=== PATIENT | female | born 1985 | race Two or more races ===

== ENCOUNTER 2024-09-07 09:52 | Inpatient (IN) | payer MEDICAID, OTHER ==
[~2024-09-07] VITALS: Ht 162.6 cm; Wt 91.0 kg
--- NOTE | 2024-09-07 11:06 | ED.PDOC ---
History of Present Illness HPI Comments HPI: Poor historian 38-year-old female presents with a chief complaint of generalized weakness, SOB, and back pain x onset this morning. Patient mentions that this morning she woke up and her body feels "sore all over" and feels generally weak. Patient mentions that she has a history of blood transfusions in the past due to anemia, last one being x 6 months ago. Patient reports that she bleeds due to uterine fibroids. She denies any active vaginal bleeding at this time. However when she believes she has heavy menstrual cycles. Patient endorses taking Iron supplements, but states that she is not consistent with them. Patient feels that she might be anemic and she might need blood transfusion given the way she feels. PMHx: Uterine Fibroids, Heavy Menstrual Bleeding PSHx: Allergies: No Known Allergies Initial Vital Signs: BP: 135/71 HR: 119 Temp: 97.5F SpO2: 100% RR: 24 HP REVIEW OF SYSTEMS: CONSTITUTIONAL: Denies acute: fever, diaphoresis, chills, HEAD: Denies acute: headache, photophobia Eyes: Denies acute: Double vision, vision loss, eye pain, eye discharge. EARS: Denies acute: tinnitus, hearing loss, ear discharge, ear pain, THROAT: Denies acute: sore throat, swelling, difficulty swallowing , pain with swallowing, change in voice. NECK: Denies acute: neck pain, neck swelling, stiff neck. HEART: Denies acute : chest pain, palpitations, LUNGS: Denies acute: wheezing, cough, hemoptysis ABDOMEN: Denies acute: abdominal pain, Nausea, Vomiting, diarrhea, melena , hematemesis, hematochezia SKIN: Denies acute: rash, redness, lesions, itchiness. EXTREMITIES: Denies acute: calf pain, numbness, tingling, weakness, denies pain in extremity. Neuro: Denies acute: focal neurological deficit, motor or sensory focal neurological deficit, tremors, seizure like activity, confusion, dizziness, change in mental status, loss of bowel or bladder function, cauda equina like symptoms. : Denies acute: dysuria, hematuria, flank pain, increase in urinary frequency. PSYCH: Denies acute: hallucination, suicidal ideation, homicidal ideation. FEMALE: Denies acute: abnormal vaginal bleeding, foul odor, unusual discharge. PHYSICAL EXAM: General: no acute distress, awake and alert. Head: normocephalic, atraumatic. Neck: supple, trachea is midline, no swelling. Throat: Normal phonation. Eyes:, no erythema, no purulent discharge, no proptosis, no icterus. Heart: regular tachycardic, no significant murmur appreciated. Lungs: no apparent respiratory distress, Able to speak in full sentences. No wheezing, no rhonchi, no crackles. No stridors Clear to auscultation bilaterally. Abdomen: non tender to palpation, non distended, soft, no guarding, no rebound, + bowel sounds. Neuro: Awake, Alert, oriented to name, self, situation, follows commands GCS=15. Speech is normal. Skin: no petechia, no purpura, no cyanosis, non-pale, not jaundice. Lower extremities: --no - Pitting edema no deformity, no focal swelling, no calf TTP. Makes eye contact. moves all four extremities. Face: no apparent facial droop. 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 Was a procedure done?: No Differential Dx Considerations may include: As far as weakness, Includes but not limited to thyroid disease, encephalopathy, electrolyte abnormality, sepsis, infection, intracranial pathology, drug adverse effects, arrhythmia, kidney insufficiency, ACS, CVA, malignancy, anemia X-Ray, Labs, Meds, VS Vital Signs Date Time Temp Pulse Resp B/P (MAP) Pulse Ox O2 Delivery O2 Flow Rate FiO2 09/07/24 18:33 114 18 128/67 (87) 95 09/07/24 17:20 122 09/07/24 12:12 110 20 130/74 (92) 100 09/07/24 12:00 108 09/07/24 11:22 99 17 100 Room Air* 0 21 09/07/24 10:10 104 09/07/24 10:00 97.5 119 24 135/71 (92) 100 Lab Test 09/07/24 17:31 09/07/24 12:58 09/07/24 11:16 09/07/24 10:05 Range/Units Urine Color Light-yellow Yellow Urine Clarity Clear Clear Urine pH 8.0 5.0-9.0 Urine Specific Reading 1.013 1.001-1.035 Urine Protein Trace H Negative Urine Ketones Negative Negative Urine Blood Negative Negative /uL Urine Nitrite Negative Negative Urine Bilirubin Negative Negative Urine Urobilinogen Normal Negative mg/dL Urine Leukocyte Esterase 1+ Negative /uL Urine RBC 1 0 - 4 /hpf Urine WBC 35 0 - 5 /hpf Urine Squamous Epithelial Cells Few <5 /hpf Urine Bacteria Few H None Seen /hpf Urine Glucose Normal Normal mg/dL Urine Test Negative Negative Hemoglobin 6.6 *L 7.1 L 12.2-16.2 g/dL Hematocrit 23.9 L 25.5 L 36.0-46.0 % White Blood Count 10.9 H 4.4-10.8 10^3/uL Red Blood Count 4.95 4.0-5.20 10^6/uL Mean Corpuscular Volume 51.4 L 80.0-100.0 fL Mean Corpuscular Hemoglobin 14.3 L 28.0-32.0 pg Mean Corpuscular Hemoglobin Concent 27.9 L 32.0-36.0 g/dL Red Cell Distribution Width 21.9 H 11.8-14.3 % Platelet Count 369 140-450 10^3/uL Mean Platelet Volume 8.2 6.9-10.8 fL Neutrophils (%) (Auto) 80.8 H 37.0-80.0 % Lymphocytes (%) (Auto) 8.3 L 10.0-50.0 % Monocytes (%) (Auto) 10.3 0.0-12.0 % Eosinophils (%) (Auto) 0.2 0.0-7.0 % Basophils (%) (Auto) 0.4 0.0-2.0 % Neutrophils # (Auto) 8.8 H 1.6-8.6 10 ^3/uL Lymphocytes # (Auto) 0.9 0.4-5.4 10 ^3/uL Monocytes # (Auto) 1.1 0-1.3 10 ^3/uL Eosinophils # (Auto) 0 0-0.8 10 ^3/uL Basophils # (Auto) 0 0-0.2 10 ^3/uL Nucleated Red Blood Cells 0.1 % Platelet Estimate Adequate Hypochromasia (manual) Marked Microcytosis Marked Stomatocytes Few Sodium Level 133 L 136-145 mmol/L Potassium Level 3.8 3.5-5.1 mmol/L Chloride Level 101 98-107 mmol/L Carbon Dioxide Level 26 20-31 mmol/L Anion Gap 6 5-15 Blood Urea Nitrogen 9 9-23 mg/dL Creatinine 0.82 0.550-1.02 mg/dL Glomerular Filtration Rate Calc 93 >90 mL/min BUN/Creatinine Ratio 11.0 10.0-20.0 Serum Glucose 100 74-106 mg/dL Lactic Acid Level 1.1 0.4-2.0 mmol/L Calcium Level 9.5 8.7-10.4 mg/dL Magnesium Level 1.7 1.6-2.6 mg/dL Troponin I High Sensitivity < 3 L </=34 ng/L B-Type Natriuretic Peptide 62.82 0-100 pg/mL POC Glucose 90 70-106 mg/dl Current Medications Medications (Trade) Dose Ordered Sig/Dandre Route Start Time Stop Time Status Last Admin Sodium Chloride 1,000 ml @ 1,000 mls/hr Q1H ONCE IV 09/07/24 12:15 09/07/24 13:14 DC 09/07/24 12:31 Acetaminophen/ Hydrocodone Bitart ([place] 5/325MG Tab) 1 tab ONCE ONCE PO 09/07/24 17:45 09/07/24 17:46 DC 09/07/24 18:02 Time of 1ST Reevaluation: 11:27 Reevaluation 1ST: Unchanged Time of 2ND Reevaluation: 20:00 Reevaluation 2ND: Improved Patient Education/Counseling: Diagnosis, Treatment Family Education/Counseling: No Family Present Comments Patient presented with the above HPI.---weakness/dyspnea---workup was initiated. patient was found with the above mentioned diagnosis. Patient was given: Patient was found with a symptomatic anemia, patient was consented for blood transfusion. An order of 2 units of packed red blood cells was ordered. She is not actively bleeding right now tall Patient ED course and VS have been stabilized. Patient has been reassessed in the ED and remained in a stable condition. Pertinent incidental findings were discussed with the patient and/or family. Patient/family voices understanding and is agreeable with plan. Patient has been observed in the ED adequate length of time to insure improvement/stability. Patient denies bleeding from anywhere. patient was admitted to the medicine team for further evaluation and treatment of their presentation. All the reports of any imaging studies that were ordered by myself were reviewed by myself. Departure 1 Departure Time of Disposition: 13:19 Impression: Primary Impression: Symptomatic anemia Additional Impression: Back pain Disposition: ADMITTED INPATIENT Admit to: Tele Condition: Guarded Discharged With: Self Critical Care Note Critical Care Time?: Yes (45 min-critical care time only) I personally scribed for GREG CORDON DO ([email or web address]) on 09/07/24 at 11:06. Electronically submitted by Maninder Felder ([email or web address]). I personally scribed for GREG CORDON DO ([email or web address]) on 09/07/24 at 12:10. Electronically submitted by Maninder Felder ([email or web address]). GREG CORDON DO Sep 07, 2024 11:06
[2024-09-07 11:22] VITALS: PULSE 99; RESP 17; O2SAT 100
[2024-09-07 11:50] LABS: Basophils # (auto) 0 10 ^3/uL (0-0.2); Eosinophils # (auto) 0 10 ^3/uL (0-0.8); Lymphocytes # (auto) 0.9 10 ^3/uL (0.4-5.4); Lymphocytes % (auto) 8.3 % (10.0-50.0); Monocytes # (auto) 1.1 10 ^3/uL (0-1.3)
[2024-09-07 11:57] LABS: Basophils % (auto) 0.4 % (0.0-2.0); Eosinophils % (auto) 0.2 % (0.0-7.0); Hematocrit 25.5 % (36.0-46.0); Hemoglobin 7.1 g/dL (12.2-16.2); Mean Corpuscular Hemoglobin 14.3 pg (28.0-32.0); Mean Corpuscular Hgb Conc. 27.9 g/dL (32.0-36.0); Mean Corpuscular Volume 51.4 fL (80.0-100.0); Monocytes % (auto) 10.3 % (0.0-12.0); Neutrophils # (auto) 8.8 10 ^3/uL (1.6-8.6); Neutrophils % (auto) 80.8 % (37.0-80.0); Nucleated Red Blood Cells % 0.1 %; Platelet Count (auto) 369 10^3/uL (140-450); Red Blood Cells 4.95 10^6/uL (4.0-5.20); Red Cell Distribution Width 21.9 % (11.8-14.3); White Blood Cell 10.9 10^3/uL (4.4-10.8)
[2024-09-07 12:00] LABS: Chloride 101 mmol/L (98-107); Potassium 3.8 mmol/L (3.5-5.1); Sodium 133 mmol/L (136-145)
[2024-09-07 12:01] LABS: Anion Gap 6 (5-15); Calcium 9.5 mg/dL (8.7-10.4); Carbon Dioxide 26 mmol/L (20-31)
[2024-09-07 12:06] LABS: Blood Urea Nitrogen 9 mg/dL (9-23); Glucose 100 mg/dL (74-106); Magnesium 1.7 mg/dL (1.6-2.6)
[2024-09-07] MEDS: SODIUM CHLORIDE 0.9% 1,000 ML IV ONE (12:31)
[2024-09-07 13:14] LABS: Hematocrit 23.9 % (36.0-46.0)
[2024-09-07 13:19] LABS: Hemoglobin 6.6 g/dL (12.2-16.2)
[2024-09-07 14:02] LABS: Platelet Estimate Adequate
[2024-09-07 14:03] LABS: Hypochromia Marked; Stomatocytes Few
--- NOTE | 2024-09-07 16:53 | DVH ---
Procedure: XY CHEST PORTABLE 09/07/2024 04:26 PM Indication: sob/weak. Comparison: None TECHNIQUE: XY CHEST PORTABLE FINDINGS: Medical devices: None. Cardiomediastinal: The heart is normal in size. Pulmonary vasculature is within normal limits. Lungs: No focal pulmonary opacity is seen. The costophrenic angles are clear. No pneumothorax. Bones/soft tissues: No acute abnormality is noted. IMPRESSION: 1. No acute cardiopulmonary disease.
[2024-09-07] MEDS: HYDROcodone-ACET 5/325MG TAB PO ONE (18:02)
[2024-09-07 18:23] LABS: Urine Bacteria FEW /hpf (None Seen); Urine Blood Negative /uL (Negative); Urine Clarity Clear (Clear); Urine Color Light-Yellow (Yellow); Urine Protein, UAD TRACE (Negative); Urine Specific Gravity 1.013 (1.001-1.035); Urine Urobilinogen Normal (Negative); Urine WBC 35 /hpf (0 - 5)
[2024-09-07 21:39] VITALS: RESP 21; O2SAT 97
[2024-09-07] MEDS ORDERED: ONDANSETRON HCL 4 MG/2 ML VIAL IV PRN (21:45)
[2024-09-07] MEDS ORDERED: ACETAMINOPHEN 325 MG TAB PO PRN (21:45)
[2024-09-07] MEDS ORDERED: NITROGLYCERIN 0.4 MG SL TAB SL PRN (21:45)
[2024-09-07] MEDS ORDERED: MORPHINE SULFATE INJ 2 MG/ml SYRG IV PRN (21:45)
[2024-09-07] MEDS: SODIUM CHLOR 0.9% PF (SALINE LOCK) 10ML VIAL/SYR IV SCH (22:00)
[2024-09-07] MEDS: SODIUM CHLORIDE 0.9% 1,000 ML IV SCH (22:12)
[2024-09-07] MEDS: cefTRIAXone 1GM/50ML D5W 50 ML IV ONE (22:27)
--- NOTE | 2024-09-07 22:31 | DVHHPRES ---
History of Present Illness Resident Creating Document: NENA BOND RESIDENT History of Present Illness This is a 38-year-old female medical history of uterine fibroid presented to the ED with a chief complaint of dizziness, palpitation, generalized weakness and pain from neck to the lower back since morning prior to this admission. According to the patient she has a history of fibroid and menorrhagia for last 3 years. Recently she started having frequent heavy menstrual bleeding twice in a month and stayed more than 5 days. She was prescribed before iron supplementation for chronic anemia but she was not compliant with this. She also mentioned she had frequent history of blood transfusion for menorrhagia and last transfusion was six-month ago. Past Medical History Fibroid uterus Past Surgical History , tubal ligation Smoke: No ALCOHOL: none Drugs: None Lives: with Family Review of Systems Constitutional: No: Fever, Chills, Sweats, Weakness, Malaise, Other Eyes: No: Pain, Vision change, Conjunctivae inflammation, Eyelid inflammation, Other, Redness ENT: No: Ear pain, Ear discharge, Nose pain, Nose discharge, Nose congestion, Mouth pain, Mouth swelling, Throat pain, Throat swelling, Other Cardiovascular: Palpitations, Lt Headedness; No: Chest Pain, Orthopnea, Paroxysmal Noc. Dyspnea, Edema, Other Gastrointestinal: No: Nausea, Vomiting, Abdominal Pain, Diarrhea, Constipation, Melena, Hematochezia, Other Genitourinary: No Dysuria, No Frequency, No Incontinence, No Hematuria, No Retention, No Other Musculoskeletal: neck pain, shoulder pain, back pain; No: other, arm pain, hand pain, leg pain, foot pain Skin: No: Rash, Lesions, Jaundice, Bruising, Other Neurological: No: Weakness, Numbness, Incoordination, Change in speech, Confusion, Seizures, Other Allergies: Coded Allergies: NO KNOWN ALLERGIES (Unverified , 09/07/24) Medications Current Medications Medications Dose Ordered Sig/Dandre Route Start Time Stop Time Status Last Admin Dose Admin Sodium Chloride 10 ml Q8HR IV 09/07/24 22:00 Sodium Chloride 1,000 ml @ 75 mls/hr [id number] IV 09/07/24 21:45 09/07/24 22:12 75 MLS/HR Acetaminophen 325 mg Q4HP PRN PO 09/07/24 21:45 Acetaminophen/ Hydrocodone Bitart 1 tab Q4HP PRN PO 09/07/24 21:45 Ondansetron HCl 4 mg Q4HP PRN IV 09/07/24 21:45 Nitroglycerin 0.4 mg Q5MINP PRN SL 09/07/24 21:45 Morphine Sulfate 2 mg Q30M PRN IV 09/07/24 21:45 Ceftriaxone Sodium 50 ml @ 100 mls/hr DAILY@09 IV 09/08/24 09:00 Exam Vital Signs Vital Signs Date Time Temp Pulse Resp B/P (MAP) Pulse Ox O2 Delivery O2 Flow Rate FiO2 09/07/24 21:39 99.0 110 21 113/67 (82) 97 99.0 09/07/24 21:39 Room Air* 0 21 Exam Physical examination: General Appearance: Alert, Oriented X3, Cooperative, No acute distress HEENT: Atraumatic, PERRLA, EOMI, Mucous membrane moist/pink Respiratory: Clear to auscultation, Normal air movement Cardiovascular: Regular rate, Normal S1, Normal S2, No murmurs, no chest wall tenderness Abdominal: Normal bowel sounds, Soft, No tenderness, No hepatospenomegaly, No masses Extremities: No clubbing, No cyanosis, No edema, Normal pulses, No tenderness/swelling Skin: No rashes, No breakdown, No significant lesion Neuro: Normal gait, Normal speech, Strength at 5/5 X4 ext, Normal tone, Sensation intact, grossly intact cranial nerves Psych/Mental Status: Mental status NL, Mood NL Labs/Xrays Labs Test 09/07/24 17:31 09/07/24 12:58 09/07/24 11:16 09/07/24 10:05 Range/Units Urine Color Light-yellow Yellow Urine Clarity Clear Clear Urine pH 8.0 5.0-9.0 Urine Specific [place] 1.013 1.001-1.035 Urine Protein Trace H Negative Urine Ketones Negative Negative Urine Blood Negative Negative /uL Urine Nitrite Negative Negative Urine Bilirubin Negative Negative Urine Urobilinogen Normal Negative mg/dL Urine Leukocyte Esterase 1+ Negative /uL Urine RBC 1 0 - 4 /hpf Urine WBC 35 0 - 5 /hpf Urine Squamous Epithelial Cells Few <5 /hpf Urine Bacteria Few H None Seen /hpf Urine Glucose Normal Normal mg/dL Urine Test Negative Negative Hemoglobin 6.6 *L 12.2-16.2 g/dL Hematocrit 23.9 L 36.0-46.0 % White Blood Count 10.9 H 4.4-10.8 10^3/uL Red Blood Count 4.95 4.0-5.20 10^6/uL Mean Corpuscular Volume 51.4 L 80.0-100.0 fL Mean Corpuscular Hemoglobin 14.3 L 28.0-32.0 pg Mean Corpuscular Hemoglobin Concent 27.9 L 32.0-36.0 g/dL Red Cell Distribution Width 21.9 H 11.8-14.3 % Platelet Count 369 140-450 10^3/uL Mean Platelet Volume 8.2 6.9-10.8 fL Neutrophils (%) (Auto) 80.8 H 37.0-80.0 % Lymphocytes (%) (Auto) 8.3 L 10.0-50.0 % Monocytes (%) (Auto) 10.3 0.0-12.0 % Eosinophils (%) (Auto) 0.2 0.0-7.0 % Basophils (%) (Auto) 0.4 0.0-2.0 % Neutrophils # (Auto) 8.8 H 1.6-8.6 10 ^3/uL Lymphocytes # (Auto) 0.9 0.4-5.4 10 ^3/uL Monocytes # (Auto) 1.1 0-1.3 10 ^3/uL Eosinophils # (Auto) 0 0-0.8 10 ^3/uL Basophils # (Auto) 0 0-0.2 10 ^3/uL Nucleated Red Blood Cells 0.1 % Platelet Estimate Adequate Hypochromasia (manual) Marked Microcytosis Marked Stomatocytes Few Sodium Level 133 L 136-145 mmol/L Potassium Level 3.8 3.5-5.1 mmol/L Chloride Level 101 98-107 mmol/L Carbon Dioxide Level 26 20-31 mmol/L Anion Gap 6 5-15 Blood Urea Nitrogen 9 9-23 mg/dL Creatinine 0.82 0.550-1.02 mg/dL Glomerular Filtration Rate Calc 93 >90 mL/min BUN/Creatinine Ratio 11.0 10.0-20.0 Serum Glucose 100 74-106 mg/dL Lactic Acid Level 1.1 0.4-2.0 mmol/L Calcium Level 9.5 8.7-10.4 mg/dL Magnesium Level 1.7 1.6-2.6 mg/dL Troponin I High Sensitivity < 3 L </=34 ng/L B-Type Natriuretic Peptide 62.82 0-100 pg/mL POC Glucose 90 70-106 mg/dl Assessment/Plan Assessment/Plan Assessment and plan: # Acute on chronic symptomatic severe iron deficiency anemia due to menorrhagia - On admission hemoglobin was 7.1- 6.6 - 2 unit PRBC was ordered - Monitor H&H # Menorrhagia due to uterine fibroid - Pelvic ultrasound revealed large uterine fibroid 17.3 x 10.6 x 16.5 cm - Consulted OBGYN # Acute cystitis - U/A is consistent with UTI - Ordered urine bacterial culture - IV ceftriaxone 1 g daily. Goal of care discussed with the patient for more than 17 minutes full code Plan of treatment discussed with Dr. Renee Plan discussed with: Patient, Other My Orders Orders - NENA BOND RESIDENT Procedure Category Date Status Time Admit ADMIT 09/07/24 Transmitted 21:37 Code Status CODE 09/07/24 Transmitted 21:37 Sodium Chloride Lock PHA 09/07/24 In Process (Saline Lock Ns) 22:00 Sodium Chloride 0.9% PHA 09/07/24 In Process 21:45 Acetaminophen Tablet PHA 09/07/24 In Process (Tylenol Tablet) 21:45 Hydrocodone-Acet PHA 09/07/24 In Process 5/325mg Tab ([place] 21:45 Ondansetron Hcl PHA 09/07/24 In Process (Zofran) 21:45 Complete Blood Count LAB 09/08/24 Verified 04:00 Comprehensive LAB 09/08/24 Verified Metabolic Panel 04:00 Nitroglycerin PHA 09/07/24 In Process Sublingual (Ntrostat 21:45 Morphine Sulfate PHA 09/07/24 In Process Injection 21:45 Oxygen By Nasal RT 09/07/24 Transmitted Cannula 21:37 Stat Ekg For Chest ANNA 09/07/24 In Process Pain 21:37 Notify Of Changes ANNA 09/07/24 In Process From Base 21:37 Electric Motor Repairer For ANNA 09/07/24 In Process 24 Hours 21:37 Emergency Dysrhythmia ANNA 09/07/24 In Process Protocol 21:37 Rhythm Strips Once ANNA 09/07/24 In Process Every Shift 21:37 Ceftriaxone 1gm/50ml PHA 09/08/24 In Process D5w (Rocephin) 09:00 Ceftriaxone 1gm/50ml PHA 09/07/24 In Process D5w (Rocephin) 22:15 Urine Bacterial GREGORY 09/07/24 Uncollected Culture 22:09 Hemoglobin A1c LAB 09/07/24 Logged 22:09 Thyroid Stimulating LAB 09/07/24 Logged Hormone 22:09 Vitamin B12 LAB 09/07/24 Logged 22:09 Vitamin D, 25-Hydroxy LAB 09/07/24 Logged 22:09 Pelvic US 09/07/24 Logged 22:09 Regular Diet DIET 09/08/24 Transmitted Breakfast NENA BOND RESIDENT Sep 07, 2024 22:31
[2024-09-07 23:45] VITALS: BP 120/72; PULSE 104; RESP 20; TEMP 97.8; O2SAT 96
[2024-09-08] VITALS (14 sets, daily range): BP systolic 109–145; BP diastolic 60–85; PULSE 95–108; RESP 18–20; TEMP 97.5–99.6; O2SAT 93–100
--- NOTE | 2024-09-08 00:55 | DVH ---
PELVIC ULTRASOUND WITH TRANSABDOMINAL AND TRANSVAGINAL IMAGING CLINICAL HISTORY: Possible fibroid uterus. COMPARISON: No prior studies available for comparison. TECHNIQUE: Transabdominal grayscale, color-flow Doppler, and duplex Doppler was performed. FINDINGS: Uterus: Measures 17.3 x 10.6 x 16.5 cm. This includes a large, heterogeneous and vascular lesion whic h measures at least 12 x 9 x 11 cm in the field of view. Neither ovary is clearly visualized. No appreciable free fluid in the cul-de-sac. IMPRESSION: Large uterine lesion most likely representing a fibroid. Limited [id number] limits further delinea tion. MRI may be obtained to further characterize. Ovaries are not clearly visualized. HS:Y
[2024-09-08 07:01] LABS: Eosinophils # (auto) 0 10 ^3/uL (0-0.8); Lymphocytes # (auto) 1.3 10 ^3/uL (0.4-5.4); Mean Corpuscular Hemoglobin 13.7 pg (28.0-32.0); Neutrophils # (auto) 5.9 10 ^3/uL (1.6-8.6)
[2024-09-08 07:04] LABS: Basophils # (auto) 0.1 10 ^3/uL (0-0.2); Basophils % (auto) 0.7 % (0.0-2.0); Eosinophils % (auto) 0.5 % (0.0-7.0); Hematocrit 25.5 % (36.0-46.0); Lymphocytes % (auto) 15.4 % (10.0-50.0); Mean Corpuscular Hgb Conc. 26.5 g/dL (32.0-36.0); Mean Corpuscular Volume 51.8 fL (80.0-100.0); Monocytes % (auto) 11.5 % (0.0-12.0); Neutrophils % (auto) 71.9 % (37.0-80.0); Nucleated Red Blood Cells % 0.1 %; Platelet Count (auto) 358 10^3/uL (140-450); Red Blood Cells 4.92 10^6/uL (4.0-5.20); White Blood Cell 8.3 10^3/uL (4.4-10.8)
[2024-09-08 07:12] LABS: Red Cell Distribution Width 22.1 % (11.8-14.3)
[2024-09-08 07:14] LABS: Hemoglobin 6.8 g/dL (12.2-16.2)
[2024-09-08 07:24] LABS: Alanine Aminotransferase 10 U/L (7-40); Albumin 4.1 g/dL (3.2-4.8); Alkaline Phosphatase 88 U/L (46-116); Anion Gap 9 (5-15); Aspartate Aminotransferase 13 U/L (13-40); BUN/Creatinine Ratio 9.2 (10.0-20.0); Bilirubin, Total 0.7 mg/dL (0.2-1.0); Blood Urea Nitrogen 7 mg/dL (9-23); Calcium 9.5 mg/dL (8.7-10.4); Carbon Dioxide 24 mmol/L (20-31); Chloride 103 mmol/L (98-107); Glucose 91 mg/dL (74-106); Potassium 3.8 mmol/L (3.5-5.1); Sodium 136 mmol/L (136-145); Total Protein 7.4 g/dL (5.7-8.2)
[2024-09-08 07:49] LABS: % Iron Saturation 5.6 % (15-50)
[2024-09-08 08:06] LABS: Platelet Estimate Adequate
[2024-09-08 08:07] LABS: Anisocytosis Slight; Hypochromia Marked
[2024-09-08 08:19] LABS: Ovalocytes FEW; Stomatocytes Few
[2024-09-08] MEDS: cefTRIAXone 1GM/50ML D5W 50 ML IV SCH (08:26)
[2024-09-08 08:31] LABS: Wright Stain Ready for Review
[2024-09-08] MEDS: HYDROcodone-ACET 5/325MG TAB PO PRN (08:36)
[2024-09-08 08:42] LABS: INR 0.97 (0.9-1.15); Partial Thromboplastin Time 23.9 SEC (24.5-34.5); Prothrombin Time 10.3 sec (9.3-11.8)
--- NOTE | 2024-09-08 08:44 | DVHPNRES ---
Progress Note Date Seen: Sep 08, 2024 Resident Creating Document: NESSA FORD RESIDENT Medical Necessity Reason Pt with a Central, PICC or Fol: No Subjective Review of Systems Patient is a 38-year-old female with past medical history of uterine fibroids who came in due to asymptomatic anemia. According to the patient, on 09/07/2024 she started experiencing a back ache radiating from her neck to her sacrum along with a fever whereby she knew she likely will need a blood transfusion which is what prompted this visit to the hospital. Patient notes that she had similar symptoms 2 months ago when she went to the hospital and got to PRBC transfusion. Patient notes that she has received over 10 blood transfusions throughout her life. Last menstrual period was on 08/06/2024, patient notes her periods last for 7 days and occur every 28-30 days. Patient says she is unable to count how many pads she goes through, roughly 1 pad per hour. Past surgical history: section Home medications: Denies Past Hospitalization: At [facility] 2 years ago for similar symptoms Social & Personal history: Patient lives with her boyfriend. Uses tobacco sometimes. Drinks alcohol occasionally, can not remember last drink. Uses marijuana occasionally. Denies using other drugs. Allergies: Denies Patient seen and examined at bedside. Patient is alert and oriented to time, place person and responding to all questions. General: Reports feeling fatigued Eyes: No Pain, No Vision change, No Conjunctivae inflammation, No Eyelid inflammation, No Other, No Redness ENT: No Ear pain, No Ear discharge, No Nose pain, No Nose discharge, No Nose congestion, No Mouth pain, No Mouth swelling, No Throat pain, No Throat swelling, No Other Cardiovascular: No Chest Pain, No Palpitations, No Orthopnea, Dyspnea, No Edema, No Lt Headedness, No Other Respiratory: No Cough, No Dry, Shortness of breath, No SOB with exertion, No Wheezing, No Hemoptysis, No Pleuritic Pain, No Sputum, No Other Gastrointestinal: No Nausea, No Vomiting, No Abdominal Pain, No Diarrhea, No Constipation, No Melena, No Hematochezia, No Other Genitourinary: No Dysuria, Frequency, No Incontinence, No Hematuria, No Retention, No Other Musculoskeletal: No other, No neck pain, No shoulder pain, No arm pain, No back pain, No hand pain, No leg pain, No foot pain Skin: No Rash, No Lesions, No Jaundice, No Bruising, No Other Objective vital signs Vital Sign Date Time Temp Pulse Resp B/P (MAP) Pulse Ox O2 Delivery O2 Flow Rate FiO2 09/08/24 05:00 99.0 99 18 109/63 (78) 100 99.0 09/08/24 00:02 Room Air* 0 21 Total Intake and Output 09/07/24 09/07/24 09/08/24 15:00 23:00 07:00 Intake Total 1000 ml 125 ml Balance 1000 ml 125 ml medications Current Medications Medications Dose Ordered Sig/Dandre Route Start Time Stop Time Status Last Admin Dose Admin Sodium Chloride 10 ml Q8HR IV 09/07/24 22:00 09/08/24 04:53 10 ML Acetaminophen 325 mg Q4HP PRN PO 09/07/24 21:45 Acetaminophen/ Hydrocodone Bitart 1 tab Q4HP PRN PO 09/07/24 21:45 Ondansetron HCl 4 mg Q4HP PRN IV 09/07/24 21:45 Nitroglycerin 0.4 mg Q5MINP PRN SL 09/07/24 21:45 Morphine Sulfate 2 mg Q30M PRN IV 09/07/24 21:45 Ceftriaxone Sodium 50 ml @ 100 mls/hr DAILY@09 IV 09/08/24 09:00 09/08/24 08:26 100 MLS/HR Examination General Appearance: Cooperative. Well developed. Well nourished. NAD Head Exam: Normal inspection. Pale conjunctiva Neck Exam: Normal inspection. Non-tender. Normal alignment Pulmonary/Respiratory: Chest non-tender. Clear bilateral breath sounds, no crackles, no wheezing. Cardiovascular/Chest: Regular rate and rhythm. No murmurs. No JVD. Peripheral Pulses: 2+ Radial (R). 2+ Radial (L). 2+ Pedal (R). 2+ Pedal (L) Abdominal Exam: Normal bowel sounds. Soft. normal abdomen, no visible veins, Nontender. No hepatospenomegaly. No masses Ankle Exam: Negative ankle edema Lower extremities: Negative lower extremity edema Neuro/Mental Status: A&O x4. Coherent. Thoughts/Psych: Normal thought pattern. Appropriate mood and affect. Good judgement and insight Skin Exam: Normal inspection. Normal color. Warm. Dry laboratory and microbiology Laboratory Tests 09/08/24 05:41 Test 09/08/24 05:41 Range/Units Serum Glucose 91 74-106 mg/dL Labs and/or images reviewed: Labs reviewed by me, Image(s) reviewed by me Problem List/Assessment/Plan Problem List/Assessment/Plan Uterine leiomyoma Acute on chronic symptomatic blood loss anemia due to above Iron deficiency - s/p 2 PRBCs transfusion overnight - pelvic USG: Large uterine lesion most likely representing fibroid. Limited field of view limits further delineation. MRI may be obtained to further characterize. - HB this a.m. 6.8 --> ordered another PRBC transfusion - utility spray operator consulted - IV NS 1 L, IV tranexamic acid 1000 mg - ordered hemoglobin electrophoresis, RBC morphology, echocardiogram - patient is scheduled for ex lap with total versus subtotal abdominal hysterectomy, possible bilateral salpingo-oophorectomy and possible cystoscopy. Acute complicated UTI - IV ceftriaxone - IV ondansetron 4 mg Vitamin-D deficiency - repleted DVT prophylaxis: SCD Goals of care: Full code, discussed for >16 minutes on 09/08/24 Plan discussed with patient Plan discussed with Dr. Traylor Plan discussed with: Patient Date of Service: Sep 08, 2024 Billing Provider: DUNCAN TRAYLOR MD Common Visit Codes: [id number] INP/OBS CARE(HIGH) Coding Comment Comment I saw and evaluated the patient. I reviewed the residents note and agree with findings and plan as documented in the residents note. Blood smear seen with team today, some rouleaux formation, markedly microcytic and hypochromic IVC, scant megakaryocytes with normal-looking platelets Although patient has anemia from severe blood loss, markedly microcytic anemia with MCV less than 60, patient should be evaluated hemoglobinopathies as outpatient NESSA FORD RESIDENT Sep 08, 2024 08:44 DUNCAN TRAYLOR MD Sep 08, 2024 20:43
--- NOTE | 2024-09-08 10:44 | ECG ---
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
[2024-09-08] MEDS: ERGOCALCIFEROL 50,000 UNIT(1.25MG) CAP PO SCH (10:54)
[2024-09-08 10:56] LABS: Hematocrit 23.3 % (36.0-46.0)
[2024-09-08 11:06] LABS: Hemoglobin 6.3 g/dL (12.2-16.2)
--- NOTE | 2024-09-08 12:20 | DVHINCON2 ---
Date of service: Sep 08, 2024 Reason for Consultation Symptomatic Fibroid uterus with anemia History of Present Illness HPI 38-year-old female three para three, history of x3 and BTL. Last menstrual period 08/06/2024. Patient admitted with acute abdominal pain and symptomatic anemia. She is treated for UTI. The patient has a known history of uterine fibroids for the last three years. She previously had a blood transfusion approximately six months ago. Prior medical treatment including hormones failed to control her bleeding. She was scheduled for hysterectomy but did not go through with surgery in the past. The patient endorses pelvic pain and abdominal bloating. Her last Pap was approximately 2-3 years ago the results are unknown. She denies any prior history of cervical cancer or cervical dysplasia. She has been treated for syphilis in the past. Pelvic ultrasound demonstrates a large fibroid uterus approximately 18 cm in size containing a 12 cm myoma bilateral ovaries are not seen. Home Meds No Active Prescriptions or Reported Meds Past Medical History Cardiac: No pertinent Hx Pulmonary: No pertinent Hx Central Nervous System: No pertinent Hx GI: No pertinent Hx Hemotology/Oncology: No pertinent Hx Hepatobiliary: No pertinent Hx Psychiatric: No pertinent Hx Musculoskeletal: No pertinent Hx Rheumotologic: No pertinent Hx Infectious Disease: Other (Syphilis) ENT: No pertinent Hx Renal/: No pertinent Hx Endocrine: No pertinent Hx Dermatology: No pertinent Hx Patient Family History: Diabetes mellitus G8 MOTHER G8 FATHER Hypertension G8 MOTHER G8 FATHER Smoker: <1 pack per day Alocohol: Occassional Drugs: Amphetimines Lives with: With family Domestic Violence: Neg Review of Systems Constitutional: Malaise, Weakness Ears, Nose, & Throat: No symptom reported Eyes: No symptom reported Pulmonary/Respiratory: No symptom reported Cardiovascular: No symptom reported Gastrointestinal: Abdominal Pain Genitourinary: No symptom reported Musculoskeletal: Back pain Skin: No symptom reported Psychiatric: No symptom reported Endocrine: No symptom reported Hemotologic/Lymphatic: No symptom reported H&P Exam Vital Signs Vital Signs Date Time Temp Pulse Resp B/P (MAP) Pulse Ox O2 Delivery O2 Flow Rate FiO2 09/08/24 09:00 98.5 102 18 115/60 (78) 93 98.5 09/08/24 00:02 Room Air* 0 21 General Appeara: Mild distress, Obese Head Exam: Normal inspection Neck Exam: Normal inspection, Non-tender Eye Exam: bilateral eye PERRL Pulmonary/Respiratory: Normal inspection, Normal breath sounds Cardiovascular/Chest: Normal inspection Abdominal Exam: Normal bowel sounds, Soft, Other (Large mobile pelvic mass 20 cm (uterus)) Rectal Exam: Deferred Pelvic Exam: Not done [employer]UICE Exam: Normal hearing, Normal speech, PERRL Neuro/Mental St: Alert, Oriented Appearance: Appropriate appearance, Appropriate insight Thoughts/Psych: Normal thought pattern Labs/Xrays PATIENT: TAE CORRALES LACCT: [id number] UNIT: [id number] : 1985 LOC: [facility] ROOM / BED: [address] [place] [address] AGE / SEX: 38 / F ADM STATUS: ADM IN SERVICE 08 ORDERING PHYSICIAN: NENA BOND RESIDENT PROCEDURE(s): PELUS - PELVIC REASON: Possible fibroid uterus ORDER NUMBER(s): [id number], ACCESSION NUMBER(s): [id number] PELVIC ULTRASOUND WITH TRANSABDOMINAL AND TRANSVAGINAL IMAGING CLINICAL HISTORY: Possible fibroid uterus. COMPARISON: No prior studies available for comparison. TECHNIQUE: Transabdominal grayscale, color-flow Doppler, and duplex Doppler was performed. FINDINGS: Uterus: Measures 17.3 x 10.6 x 16.5 cm. This includes a large, heterogeneous and vascular lesion which measures at least 12 x 9 x 11 cm in the field of view. Neither ovary is clearly visualized. No appreciable free fluid in the cul-de-sac. IMPRESSION: Large uterine lesion most likely representing a fibroid. Limited siair-cp-orsa limits further delineation. MRI may be obtained to further characterize. Ovaries are not clearly visualized. HS:Y Labs Test 09/08/24 10:10 09/08/24 05:41 09/07/24 17:31 09/07/24 11:16 Range/Units Hemoglobin 6.3 *L 12.2-16.2 g/dL Hematocrit 23.3 L 36.0-46.0 % Platelet Count 336 140-450 10^3/uL White Blood Count 8.3 4.4-10.8 10^3/uL Red Blood Count 4.92 4.0-5.20 10^6/uL Mean Corpuscular Volume 51.8 L 80.0-100.0 fL Mean Corpuscular Hemoglobin 13.7 L 28.0-32.0 pg Mean Corpuscular Hemoglobin Concent 26.5 L 32.0-36.0 g/dL Red Cell Distribution Width 22.1 H 11.8-14.3 % Mean Platelet Volume 8.3 6.9-10.8 fL Neutrophils (%) (Auto) 71.9 37.0-80.0 % Lymphocytes (%) (Auto) 15.4 10.0-50.0 % Monocytes (%) (Auto) 11.5 0.0-12.0 % Eosinophils (%) (Auto) 0.5 0.0-7.0 % Basophils (%) (Auto) 0.7 0.0-2.0 % Neutrophils # (Auto) 5.9 1.6-8.6 10 ^3/uL Lymphocytes # (Auto) 1.3 0.4-5.4 10 ^3/uL Monocytes # (Auto) 1.0 0-1.3 10 ^3/uL Eosinophils # (Auto) 0 0-0.8 10 ^3/uL Basophils # (Auto) 0.1 0-0.2 10 ^3/uL Nucleated Red Blood Cells 0.1 % Platelet Estimate Adequate Hypochromasia (manual) Marked Anisocytosis (manual) Slight Microcytosis Marked Ovalocytes Few Stomatocytes Few Reticulocyte Count (auto) 3.02 H 0.5-1.5 % Prothrombin Time 10.3 9.3-11.8 sec Prothrombin Time INR 0.97 0.9-1.15 Activated Partial Thromboplast Time 23.9 L 24.5-34.5 SEC Fibrinogen 551 H 177-375 mg/dL Sodium Level 136 136-145 mmol/L Potassium Level 3.8 3.5-5.1 mmol/L Chloride Level 103 98-107 mmol/L Carbon Dioxide Level 24 20-31 mmol/L Anion Gap 9 5-15 Blood Urea Nitrogen 7 L 9-23 mg/dL Creatinine 0.76 0.550-1.02 mg/dL Glomerular Filtration Rate Calc 102 >90 mL/min BUN/Creatinine Ratio 9.2 L 10.0-20.0 Serum Glucose 91 74-106 mg/dL Hemoglobin A1c 4.2 <5.7 % A1C Calcium Level 9.5 8.7-10.4 mg/dL Iron Level 20 L 50-170 ug/dL Total Iron Binding Capacity 359 250-425 ug/dL Percent Iron Saturation 5.6 L 15-50 % Total Bilirubin 0.7 0.2-1.0 mg/dL Aspartate Amino Transferase (AST) 13 13-40 U/L Alanine Aminotransferase (ALT) 10 7-40 U/L Alkaline Phosphatase 88 46-116 U/L Lactate Dehydrogenase 218 120-246 U/L Total Protein 7.4 5.7-8.2 g/dL Albumin 4.1 3.2-4.8 g/dL Vitamin B12 Level 457 211-911 pg/mL Vitamin D 25-Hydroxy 15.6 L 30.0-100 ng/mL Thyroid Stimulating Hormone (TSH) 1.13 0.55-4.78 uIU/mL Urine Color Light-yellow Yellow Urine Clarity Clear Clear Urine pH 8.0 5.0-9.0 Urine Specific [place] 1.013 1.001-1.035 Urine Protein Trace H Negative Urine Ketones Negative Negative Urine Blood Negative Negative /uL Urine Nitrite Negative Negative Urine Bilirubin Negative Negative Urine Urobilinogen Normal Negative mg/dL Urine Leukocyte Esterase 1+ Negative /uL Urine RBC 1 0 - 4 /hpf Urine WBC 35 0 - 5 /hpf Urine Squamous Epithelial Cells Few <5 /hpf Urine Bacteria Few H None Seen /hpf Urine Glucose Normal Normal mg/dL Urine Test Negative Negative Lactic Acid Level 1.1 0.4-2.0 mmol/L Magnesium Level 1.7 1.6-2.6 mg/dL Troponin I High Sensitivity < 3 L </=34 ng/L B-Type Natriuretic Peptide 62.82 0-100 pg/mL Test 09/07/24 10:05 Range/Units POC Glucose 90 70-106 mg/dl Assessment/Plan Admitting Diagnosis: 1. Symptomatic Fibroid Uterus 2. Symptoamtic Anemia 3. Hx of C/S x 3 and BTL 4. Obesity Plan Patient will be admitted for blood transfusion. Multiple therapeutic options were discussed with the patient including medical management with hormones or medication. Invasive procedures such as uterine artery embolization or fibroid radiofrequency ablation. Option for total versus subtotal hysterectomy also discussed with the patient. This is recommended to be the definitive treatment. Patient would like to proceed with hysterectomy given the size of the uterus and persistent symptoms. We will keep the patient NPO after midnight for surgery in the morning. She is consented for the following: Pelvic exam under anesthesia, exploratory laparotomy, total versus subtotal abdominal hysterectomy, possible bilateral salpingo-oophorectomy, possible cystoscopy. The risks, benefits and alternatives to surgery have been discussed with the patient and informed consent has been obtained. The risks of pain, scar, bleeding, infection, injury to bowel, bladder, adjacent organs, and possible blood transfusion all addressed with the patient. The patient understands that she will be permanently sterile. Plan discussed with: Patient, Other (RN) Date of Service: Sep 08, 2024 Billing Provider: SUE FLORES DO Common Visit Codes: 46787-[id number] SAME DATE (HIGH) SUE FLORES DO Sep 08, 2024 12:20
[2024-09-08] MEDS: TRANEXAMIC ACID 1,000 MG in SODIUM CHL 0.9% 100 ML IV ONE (12:32)
[2024-09-08 14:34] LABS: Basophils # (auto) 0.1 10 ^3/uL (0-0.2); Basophils % (auto) 0.8 % (0.0-2.0); Eosinophils # (auto) 0.1 10 ^3/uL (0-0.8); Eosinophils % (auto) 1.7 % (0.0-7.0); Hematocrit 23.3 % (36.0-46.0); Lymphocytes # (auto) 1.9 10 ^3/uL (0.4-5.4); Lymphocytes % (auto) 25.2 % (10.0-50.0); Mean Corpuscular Hemoglobin 14.9 pg (28.0-32.0); Mean Corpuscular Hgb Conc. 27.9 g/dL (32.0-36.0); Mean Corpuscular Volume 53.3 fL (80.0-100.0); Monocytes # (auto) 0.9 10 ^3/uL (0-1.3); Monocytes % (auto) 11.8 % (0.0-12.0); Neutrophils # (auto) 4.6 10 ^3/uL (1.6-8.6); Neutrophils % (auto) 60.5 % (37.0-80.0); Platelet Count (auto) 334 10^3/uL (140-450); Red Blood Cells 4.37 10^6/uL (4.0-5.20); Red Cell Distribution Width 21.9 % (11.8-14.3); White Blood Cell 7.5 10^3/uL (4.4-10.8)
[2024-09-08 14:37] LABS: Hemoglobin 6.5 g/dL (12.2-16.2)
[2024-09-08 14:49] LABS: Anisocytosis Slight; Hypochromia Marked; Platelet Count (auto) 334 10^3/uL (140-450); Platelet Estimate Adequate
[2024-09-08 14:50] LABS: Ovalocytes FEW; Stomatocytes Few
--- NOTE | 2024-09-08 18:43 | DVHSR ---
APPROVED REPORT EXAM: Two-dimensional and M-mode echocardiogram with Doppler and color Doppler. INDICATION Dyspnea RISK FACTORS Height: 5'4", Weight: 209 DIMENSIONS LVDd4.5 (3.8-5.7cm)LA (2D)4.5 (1.9-4.0cm)Aortic Root3.2 (2.0-3.7cm) LVDs2.6 (2.5-4.0cm)LA (MM) (1.9-4.0cm)Aortic Cusp Exc2.1 (1.5-2.0cm) EF (%) 73.0 (55-70%)Rt. Atrium4.3 (1.9-4.0cm)Asc. Aorta3.1 cm IVSd1.3 (0.7-1.1cm)RV (D)3.9 (1.8-2.4cm) PWd0.9 (0.7-1.1cm) Mitral Valve MitralMitral Stenosis E wave0.78m/sMV Mean GR.mmHg A wave1.05m/sMV Peak GR.mmHg E/A ratio0.72D MVAcm2 DECEL [id number] 1/2 Timems Aortic Valve Aortic ValveAortic Stenosis V11.14m/Nicki Mean GR.6mmHg V21.54m/Nicki Peak GR.9mmHg LVOT Diameter2.3 (1.8-2.4cm)Doppler AVA3.07cm2 Tricuspid Valve TR Velocity3.12m/s [id number] Conclusion Normal left ventricular size and dimension. Normal left ventricular systolic function estimated ejec tion fraction 55%. There is a grade 1 diastolic dysfunction. Normal right ventricular size and dimension. Normal right ventricular systolic function. Moderately elevated right ventricular systolic pressure at 47 mm of mercury. Normal biatrial size and dimension. Normal aortic valve structure and function. Normal mitral valve structure and function. Normal tricuspid valve structure and function. The pulmonary valve is grossly normal. No pericardial effusion.
[2024-09-09] VITALS (13 sets, daily range): BP systolic 115–146; BP diastolic 66–80; PULSE 86–99; RESP 12–20; TEMP 97.3–98.8; O2SAT 95–99
[2024-09-09 07:57] LABS: Basophils # (auto) 0.1 10 ^3/uL (0-0.2); Basophils % (auto) 0.8 % (0.0-2.0); Eosinophils # (auto) 0.2 10 ^3/uL (0-0.8); Hemoglobin 9.3 g/dL (12.2-16.2); Monocytes # (auto) 0.9 10 ^3/uL (0-1.3); Monocytes % (auto) 12.3 % (0.0-12.0)
[2024-09-09 07:59] LABS: Eosinophils % (auto) 2.3 % (0.0-7.0); Hematocrit 30.4 % (36.0-46.0); Lymphocytes # (auto) 0.9 10 ^3/uL (0.4-5.4); Lymphocytes % (auto) 12.8 % (10.0-50.0); Mean Corpuscular Hemoglobin 18.5 pg (28.0-32.0); Mean Corpuscular Hgb Conc. 30.7 g/dL (32.0-36.0); Mean Corpuscular Volume 60.3 fL (80.0-100.0); Neutrophils % (auto) 71.8 % (37.0-80.0); Nucleated Red Blood Cells % 0.1 %; Platelet Count (auto) 326 10^3/uL (140-450); Red Blood Cells 5.04 10^6/uL (4.0-5.20); White Blood Cell 6.9 10^3/uL (4.4-10.8)
[2024-09-09] MEDS: ceFAZolin 2 GM/D5W100ml 100 ML IV ONE (08:00)
[2024-09-09] MEDS: SUCCINYLCHOLINE CHLORIDE 20 MG/ML 10ML VIAL IV ONE (09:15)
[2024-09-09] MEDS: ROPIVACAINE 0.5% (5MG/ML) 20ML AMPULE IJ ONE (09:16)
[2024-09-09] MEDS ORDERED: fentaNYL CITRATE 100 MCG/2 ML VL ONE (09:17)
[2024-09-09] MEDS ORDERED: MEPERIDINE HCL (50 MG/ML) 1 ML VIAL ONE ×2 (09:46→10:32)
[2024-09-09] MEDS ORDERED: ONDANSETRON HCL 4 MG/2 ML VIAL ONE (09:51)
[2024-09-09] MEDS ORDERED: DexAMETHasone SOD PHOS 10MG/1ML VIAL INJ ONE (09:51)
[2024-09-09] MEDS ORDERED: ROCURONIUM 10MG/ML 10ML VIAL IV ONE (10:30)
[2024-09-09] MEDS ORDERED: MEPERIDINE HCL (25 MG/ML) 1ML VIAL ONE (11:22)
[2024-09-09] MEDS: METHYLENE BLUE 0.5% 5MG/ML 10ml AMP IV ONE (11:22)
[2024-09-09] MEDS: BUPIVACAINE W/ EPINEPH 0.5% MPF 30ML VIAL IJ ONE (11:58)
[2024-09-09] MEDS: LIDOCAINE 1% HCL (LOCAL ANESTH.) INJ 20ML MDV ONE (11:58)
[2024-09-09] MEDS ORDERED: SUGAMMADEX 200mg/2ml Vial (100MG/ML) IV ONE (12:01)
[2024-09-09] MEDS ORDERED: FUROSEMIDE 20 MG/2 ML VIAL ONE (12:10)
[2024-09-09] MEDS ORDERED: ACETAMINOPHEN IV 1000 MG/100ML (10MG/ML) IV PRN (13:15)
[2024-09-09] MEDS: ONDANSETRON HCL 4 MG/2 ML VIAL IV ONE (13:15)
[2024-09-09] MEDS ORDERED: ONDANSETRON HCL 4 MG/2 ML VIAL IV PRN (13:15)
[2024-09-09] MEDS ORDERED: HYDROmorphone HCL 2 MG/ML VL/or syr IV PRN (13:15)
[2024-09-09] MEDS ORDERED: MEPERIDINE HCL (25 MG/ML) 1ML VIAL IV PRN (13:15)
[2024-09-09] MEDS: ceFAZolin 1GM/50ML 50 ML IV ONE (13:22)
[2024-09-09] MEDS: IOHEXOL 300 MG/ML 100ML BOTTLE IJ ONE (13:32)
--- NOTE | 2024-09-09 13:57 | DVHOP ---
DATE OF SURGERY: 09/09/2024 POSTOPERATIVE DIAGNOSES: * Symptomatic fibroid uterus. * Menorrhagia with anemia. * Morbid obesity. * Previous section x 3. FINAL DIAGNOSES: * Symptomatic fibroid uterus. * Menorrhagia with anemia. * Morbid obesity. * Previous section x 3. * Multiple adhesions. PROCEDURES PERFORMED: Exploratory laparotomy via midline infraumbilical incision, subtotal hysterectomy, bilateral salpingectomy, diagnostic cystoscopy and lysis of adhesions. SURGEON: Tripp Rooney DO. DEMOLITION EXPERT: Ministerio Hernandes NP. TYPE OF ANESTHESIA: General endotracheal. ANESTHESIOLOGIST: Dr. Thomas Betancourt. DESCRIPTION OF FINDINGS: A bulky, enlarged uterus, approximately 20 weeks' size. Normal bilateral fallopian tubes and ovaries. The ovaries were conserved bilaterally. Fallopian tubes were removed. The cervix was not removed. No gross evidence of malignancy. The left ureter consistent with mild hydroureter, multiple adhesions of the uterus to the anterior abdominal wall. TECHNICAL PROCEDURE: After informed consent was obtained, the patient was taken to the operating room where she underwent smooth induction with general anesthesia. She was placed in a supine position. She was sterilely prepped and draped in usual fashion. A transurethral Giron was already in place. A midline incision was made with a scalpel and the incision carried sharply to the underlying fascia. The fascial incision was extended superiorly and inferiorly. Next, entry into the peritoneal cavity was performed sharply. The peritoneal incision was extended superiorly and inferiorly with good visualization of underlying organs. There were numerous adhesions encountered as described above. Sharp and blunt adhesiolysis was performed to gain access to the peritoneal cavity and uterus. The uterus was delivered through the incision. Uteroovarian fallopian tube complex was desiccated and transected with the LigaSure device on the patient's left side. The procedure was repeated on the contralateral right side in similar fashion with good hemostasis noted. Next,bilaterally, the round ligaments were identified and divided with the LigaSure device with good hemostasis noted. The anterior and posterior reflections of the broad ligament were dissected anteriorly to the level of the bladder and posteriorly to the level of the uterosacral ligaments. The bladder was densely adherent to the anterior uterine surface from the patient's previous sections. Sharp and blunt dissection was used to dissect the bladder in a caudad direction. The vesicouterine peritoneum was dissected with minimal bleeding. Bleeding points were controlled with cautery. The uterine vessels were skeletonized bilaterally. They were doubly clamped, transected and suture ligated with 0 Vicryl with good tissue hemostasis obtained. Next, the uterus was amputated at the isthmus and the specimen handed off to circulating team. Next, the cervical angles were clamped and suture ligated with 0 Vicryl with good hemostasis obtained. The endocervical canal was cauterized. Next, the cervical stump was sutured using multiple interrupted, 0 Vicryl sutures in [id number] fashion with good tissue approximation. The abdomen and pelvis were thoroughly irrigated. Hemostasis was confirmed. Next, the left and right ureters were identified and traced from its origin at the pelvic brim to the level of the bladder. There was identifiable left hydroureter. There was no compromise of the ureter that was apparent on the patient's left side. The fallopian tubes were removed using the LigaSure device across the mesosalpinx and the specimens submitted. The ovaries were intact and conserved, they were not removed. At this point, all instrumentation was removed from the patient's abdomen. I then proceeded to close the rectus fascia using double-looped PDS in continuous running fashion with good tissue approximation. We used a modified Smead-Smalls closure incorporating peritoneum and muscle into the closure of the abdominal wall. The subcutaneous tissue was irrigated, undermined and bleeding points controlled with cautery. The subcutaneous tissue was closed with a 2-0 plain gut and the skin was closed vertically with pam. A sterile dressing was then placed over the incision. Next, I then proceeded to remove the Giron catheter. I inserted a 70-degree cystoscope through the urethra into the bladder. Survey of the bladder dome trigone and ureteral orifices were all within normal limits. There was sluggish, but apparent dye seen coming out of bilateral ureteral orifices. The cystoscope was removed and the Giron catheter was replaced. A speculum was used to examine the patient's vagina. The small cervical stump could barely be identified and palpated. There was no active bleeding from the vagina. All instrumentation was then removed. The patient was taken out of frogleg position. She was awakened and taken to recovery room in a stable condition. INTRAOPERATIVE COMPLICATIONS: None. ESTIMATED BLOOD LOSS: 600 mL. POSTOPERATIVE CONDITION: Stable. SPECIMENS: Uterus, bilateral fallopian tubes. MEDICATIONS: The patient received 2 grams of Ancef prior to skin incision. Tripp Rooney DO CG/ARV TID: [id number] RECEIPT: [id number] MTDD
[2024-09-09] MEDS: CEFAZOLIN 1 GM/50 ML IV SCH (14:00)
--- NOTE | 2024-09-09 14:45 | DVH ---
CT CT AB PEL WITH IV CON ONLY History: L HYDROURETER S/P HYSTERECTOMY; PERF Comparison Study: None available at time of dictation. Technique: Multidetector spiral CT of the abdomen and pelvis was performed from lung bases to pubic s ymphysis. Initial imaging was done without IV contrast, followed by post contrast images of the abdo men and pelvis. Intravenous contrast was administered during this examination. Multi phase imaging w as obtained. Axial, coronal and sagittal multiplanar reformats were performed by the technologist on a separate workstation. CONTRAST: Type of contrast: Omni 300 Contrast injected: 100 ml Contrast ingested: 0 ml Radiation Dose : CT Dose: CTDI volume is 27.13 mGy. Dose-length product is 3779.55 mGy*cm Findings: Lung Bases: Mild atelectasis and consolidation in the visualized lung bases. Trace left pleural effus ion. Liver: The liver is normal in size. No focal lesions. Normal hepatic vascular enhancement. Gallbladder and biliary Tree: Unremarkable Spleen: Spleen is enlarged. Pancreas: The pancreas is normal in appearance without focal lesions or abnormal enhancement. Adrenal Glands: Unremarkable Kidneys: There is irregularity and scarring of the right kidney. There are a few punctate calcificati ons in the upper pole of the right kidney. There is mild irregularity of the left kidney with renal c ortical scarring. Mild left hydronephrosis and hydroureter. Contrast flows all the way to the bladder . No evidence of a ureteral leak. Bladder: Bladder is decompressed with a Giron catheter and cannot be adequately assessed. Bowel: The stomach is grossly normal in appearance. Small bowel and colon are normal in caliber and d istribution. The appendix is not visualized; however, no secondary findings of acute appendicitis id entified. Ascites: Small amount of free fluid in the pelvis. Pneumoperitoneum in the abdomen and pelvis likely postprocedural. Lymphadenopathy: No mesenteric, retroperitoneal or periportal lymphadenopathy. Abdominal wall and Mesentery: Postsurgical changes in the anterior abdominal wall. Vasculature: The visualized abdominal aorta is normal in size and caliber. Abdominal and pelvic vess els demonstrate normal enhancement. Pelvic Organs: The uterus is surgically absent. Musculoskeletal: No aggressive focal bony lesions, acute fractures or dislocation. IMPRESSION: 1. Status post hysterectomy. Small amount of fluid in the pelvis could be postprocedural. Pneumoperit oneum in the abdomen and pelvis is likely postprocedural. 2. Mild left hydronephrosis and hydroureter. No evidence of a ureteral leak. 3. Bibasilar atelectasis and consolidation. Trace left pleural effusion. Splenomegaly. Radiation optimization: All CT scans at this facility use at least one of these dose optimization vincent hniques: Automated exposure control mA and/or kV adjustment per patient size (includes targeted exams where dose is matched to clinical indication) or iterative reconstruction. HS:Y
[2024-09-09] MEDS: HYDROmorphone HCL 2 MG/ML VL/or syr IV PRN (14:54)
[2024-09-09 15:08] LABS: Hemoglobin 8.6 g/dL (12.2-16.2)
[2024-09-09 15:10] LABS: Hematocrit 28.2 % (36.0-46.0); Mean Corpuscular Hemoglobin 18.3 pg (28.0-32.0); Mean Corpuscular Hgb Conc. 30.4 g/dL (32.0-36.0); Platelet Count (auto) 315 10^3/uL (140-450); White Blood Cell 12.9 10^3/uL (4.4-10.8)
[2024-09-09 15:12] LABS: Basophils % (manual) 0 (0.0-2.0); Blast Cells 0; Eosinophils % (manual) 0 (0-7); Metamyelocytes % 0; Myelocytes % 0; Promyelocytes % 0; Reactive Lymphocytes 0
[2024-09-09 16:30] LABS: Anisocytosis Marked; Band Neutrophils % (manual) 5; Hypochromia Marked; Lymphocytes % (manual) 4 (10.0-50.0); Monocytes % (manual) 5 (0-12); Platelet Estimate Adequate
--- NOTE | 2024-09-09 17:27 | DVHPNRES ---
Progress Note Date Seen: Sep 09, 2024 Resident Creating Document: NESSA FORD RESIDENT Medical Necessity Reason Pt with a Central, PICC or Fol: No Subjective Review of Systems Patient is a 38-year-old female with past medical history of uterine fibroids who came in due to asymptomatic anemia. According to the patient, on 09/07/2024 she started experiencing a back ache radiating from her neck to her sacrum along with a fever whereby she knew she likely will need a blood transfusion which is what prompted this visit to the hospital. Patient notes that she had similar symptoms 2 months ago when she went to the hospital and got to PRBC transfusion. Patient notes that she has received over 10 blood transfusions throughout her life. Last menstrual period was on 08/06/2024, patient notes her periods last for 7 days and occur every 28-30 days. Patient says she is unable to count how many pads she goes through, roughly 1 pad per hour. Past surgical history: section Home medications: Denies Past Hospitalization: At [facility] ago for similar symptoms Social & Personal history: Patient lives with her boyfriend. Uses tobacco sometimes. Drinks alcohol occasionally, can not remember last drink. Uses marijuana occasionally. Denies using other drugs. Allergies: Denies Patient seen and examined at bedside. Patient is alert and oriented to time, place person and responding to all questions. Patient underwent ex lap today. Objective vital signs Vital Sign Date Time Temp Pulse Resp B/P (MAP) Pulse Ox O2 Delivery O2 Flow Rate FiO2 09/09/24 16:07 97.9 86 18 122/80 (94) 95 97.9 09/09/24 12:49 Mask 5.0 09/09/24 12:49 97 Total Intake and Output 09/08/24 09/08/24 09/09/24 15:00 23:00 07:00 Intake Total 50 ml 2100 ml 1960 ml Balance 50 ml 2100 ml 1960 ml medications Current Medications Medications Dose Ordered Sig/Dandre Route Start Time Stop Time Status Last Admin Dose Admin Sodium Chloride 10 ml Q8HR IV 09/07/24 22:00 09/09/24 14:44 10 ML Acetaminophen 325 mg Q4HP PRN PO 09/07/24 21:45 Nitroglycerin 0.4 mg Q5MINP PRN SL 09/07/24 21:45 Morphine Sulfate 2 mg Q30M PRN IV 09/07/24 21:45 Ceftriaxone Sodium 50 ml @ 100 mls/hr DAILY@09 IV 09/08/24 09:00 09/08/24 08:26 100 MLS/HR Ergocalciferol 50,000 unit Q7D PO 09/08/24 08:45 09/08/24 10:54 50,000 UNIT Ondansetron HCl 4 mg Q4HP PRN IV 09/09/24 13:15 Cefazolin Sodium 200 ml @ 200 mls/hr Q8HR IV 09/09/24 14:00 09/10/24 06:59 Hydromorphone HCl 1 mg Q2HP PRN IV 09/09/24 13:15 09/09/24 14:54 1 MG Ketorolac Tromethamine 30 mg Q6HP PRN IV 09/09/24 13:15 09/14/24 13:14 Acetaminophen/ Hydrocodone Bitart 1 tab Q6HP PRN PO 09/09/24 13:15 Examination General Appearance: Cooperative. Well developed. Well nourished. NAD Head Exam: Normal inspection. Pale conjunctiva Neck Exam: Normal inspection. Non-tender. Normal alignment Pulmonary/Respiratory: Chest non-tender. Clear bilateral breath sounds, no crackles, no wheezing. Cardiovascular/Chest: Regular rate and rhythm. No murmurs. No JVD. Peripheral Pulses: 2+ Radial (R). 2+ Radial (L). 2+ Pedal (R). 2+ Pedal (L) Abdominal Exam: Normal bowel sounds. Soft. normal abdomen, no visible veins, Nontender. No hepatospenomegaly. No masses Ankle Exam: Negative ankle edema Lower extremities: Negative lower extremity edema Neuro/Mental Status: A&O x4. Coherent. Thoughts/Psych: Normal thought pattern. Appropriate mood and affect. Good judgement and insight Skin Exam: Normal inspection. Normal color. Warm. Dry laboratory and microbiology Laboratory Tests 09/09/24 14:30 09/08/24 05:41 Test 09/08/24 05:41 Range/Units Serum Glucose 91 74-106 mg/dL Microbiology Date/Time Source Procedure Growth Status 09/07/24 17:31 Voided Urine Urine Culture - Preliminary Resulted Labs and/or images reviewed: Labs reviewed by me, Image(s) reviewed by me Problem List/Assessment/Plan Problem List/Assessment/Plan Uterine leiomyoma Acute on chronic symptomatic blood loss anemia due to above Iron deficiency - s/p 2 PRBCs transfusion overnight - pelvic USG: Large uterine lesion most likely representing fibroid. Limited field of view limits further delineation. MRI may be obtained to further characterize. - HB this a.m. 6.8 --> ordered another PRBC transfusion - athletic monitor consulted - IV NS 1 L, IV tranexamic acid 1000 mg - ordered hemoglobin electrophoresis, RBC morphology, echocardiogram - patient completed ex lap with total versus subtotal abdominal hysterectomy, possible bilateral salpingo-oophorectomy and possible cystoscopy. Acute complicated UTI - IV ceftriaxone - IV ondansetron 4 mg Vitamin-D deficiency - repleted DVT prophylaxis: SCD Goals of care: Full code, discussed for >16 minutes on 09/08/24 Plan discussed with patient Plan discussed with Dr. Traylor Plan discussed with: Patient, Other (RN) My Orders My Orders Orders - NESSA FORD RESIDENT Procedure Category Date Status Time Furosemide Injection PHA 09/09/24 In Process (Lasix Injection) 12:10 Date of Service: Sep 09, 2024 Billing Provider: DUNCAN TRAYLOR MD Common Visit Codes: [id number] INP/OBS CARE(HIGH) Coding Comment Comment I saw and evaluated the patient. I reviewed the residents note and agree with findings and plan as documented in the residents note. Per director career services, unilateral might hydronephrosis, we will repeat some tomorrow in which for obstructive KENNEY Microcytic anemia with MCV < 60 will need outpatient hbpathy workup NESSA FORD Sep 09, 2024 17:27 DUNCAN TRAYLOR MD Sep 09, 2024 20:57
[2024-09-09 19:57] LABS: Hematocrit 27.3 % (36.0-46.0); Hemoglobin 8.3 g/dL (12.2-16.2); Mean Corpuscular Hemoglobin 18.5 pg (28.0-32.0); Mean Corpuscular Hgb Conc. 30.6 g/dL (32.0-36.0); Mean Corpuscular Volume 60.4 fL (80.0-100.0); Platelet Count (auto) 323 10^3/uL (140-450); Red Blood Cells 4.52 10^6/uL (4.0-5.20)
[2024-09-09 19:59] LABS: Red Cell Distribution Width 33.2 % (11.8-14.3)
[2024-09-09 20:03] LABS: Basophils % (manual) 0 (0.0-2.0); Blast Cells 0; Eosinophils % (manual) 0 (0-7); Metamyelocytes % 0; Myelocytes % 0; Promyelocytes % 0; Reactive Lymphocytes 0
[2024-09-09 21:25] LABS: Band Neutrophils % (manual) 4; Lymphocytes % (manual) 5 (10.0-50.0); Monocytes % (manual) 3 (0-12); Platelet Estimate Adequate
[2024-09-09 21:26] LABS: Anisocytosis Marked; Hypochromia Marked
[2024-09-09] MEDS: HYDROcodone-ACET 7.5/325MG TAB PO PRN (23:18)
[2024-09-10] VITALS (7 sets, daily range): BP systolic 106–123; BP diastolic 55–76; PULSE 95–102; RESP 18–20; TEMP 96.8–97.9; O2SAT 89–97
[2024-09-10] MEDS: metroNIDAZOLE 500MG/100ML 100 ML IV ONE (00:13)
--- NOTE | 2024-09-10 04:09 | DVHPN2 ---
Subjective Progress Notes Subjective POD#1 s/p Ex Lap, Subtotal Hysterectomy, BS and Cystoscopy for very large uterine fibroids Anemia w/ history of blood transfusion post op CT scan,mild left hydroureter, bladder and ureter intact (no injury noted) Objective PHYSICAL EXAM Physical Exam: Gen: Alert, NAD Abd: Incision midline, dressing dry, soft, non distended Ext: neg Karina sign Vital Signs and I&O Vital Signs Date Time Temp Pulse Resp B/P (MAP) Pulse Ox O2 Delivery O2 Flow Rate FiO2 09/10/24 01:50 74 18 120/60 09/10/24 01:00 97.4 97 97.4 09/09/24 20:00 Room Air* 0 21 Intake and Output 09/10/24 07:00 Intake Total 100 ml Balance 100 ml Intake Oral 0 ml IV Total 100 ml Lab results Laboratory Tests Test 09/07/24 10:05 09/07/24 11:16 09/07/24 12:58 09/07/24 17:31 Range/Units POC Glucose 90 70-106 mg/dl White Blood Count 10.9 H 4.4-10.8 10^3/uL Red Blood Count 4.95 4.0-5.20 10^6/uL Hemoglobin 7.1 L 6.6 *L 12.2-16.2 g/dL Hematocrit 25.5 L 23.9 L 36.0-46.0 % Mean Corpuscular Volume 51.4 L 80.0-100.0 fL Mean Corpuscular Hemoglobin 14.3 L 28.0-32.0 pg Mean Corpuscular Hemoglobin Concent 27.9 L 32.0-36.0 g/dL Red Cell Distribution Width 21.9 H 11.8-14.3 % Platelet Count 369 140-450 10^3/uL Mean Platelet Volume 8.2 6.9-10.8 fL Neutrophils (%) (Auto) 80.8 H 37.0-80.0 % Lymphocytes (%) (Auto) 8.3 L 10.0-50.0 % Monocytes (%) (Auto) 10.3 0.0-12.0 % Eosinophils (%) (Auto) 0.2 0.0-7.0 % Basophils (%) (Auto) 0.4 0.0-2.0 % Neutrophils # (Auto) 8.8 H 1.6-8.6 10 ^3/uL Lymphocytes # (Auto) 0.9 0.4-5.4 10 ^3/uL Monocytes # (Auto) 1.1 0-1.3 10 ^3/uL Eosinophils # (Auto) 0 0-0.8 10 ^3/uL Basophils # (Auto) 0 0-0.2 10 ^3/uL Nucleated Red Blood Cells 0.1 % Platelet Estimate Adequate Hypochromasia (manual) Marked Microcytosis Marked Stomatocytes Few Sodium Level 133 L 136-145 mmol/L Potassium Level 3.8 3.5-5.1 mmol/L Chloride Level 101 98-107 mmol/L Carbon Dioxide Level 26 20-31 mmol/L Anion Gap 6 5-15 Blood Urea Nitrogen 9 9-23 mg/dL Creatinine 0.82 0.550-1.02 mg/dL Glomerular Filtration Rate Calc 93 >90 mL/min BUN/Creatinine Ratio 11.0 10.0-20.0 Serum Glucose 100 74-106 mg/dL Lactic Acid Level 1.1 0.4-2.0 mmol/L Calcium Level 9.5 8.7-10.4 mg/dL Magnesium Level 1.7 1.6-2.6 mg/dL Troponin I High Sensitivity < 3 L </=34 ng/L B-Type Natriuretic Peptide 62.82 0-100 pg/mL Urine Color Light-yellow Yellow Urine Clarity Clear Clear Urine pH 8.0 5.0-9.0 Urine Specific [place] 1.013 1.001-1.035 Urine Protein Trace H Negative Urine Ketones Negative Negative Urine Blood Negative Negative /uL Urine Nitrite Negative Negative Urine Bilirubin Negative Negative Urine Urobilinogen Normal Negative mg/dL Urine Leukocyte Esterase 1+ Negative /uL Urine RBC 1 0 - 4 /hpf Urine WBC 35 0 - 5 /hpf Urine Squamous Epithelial Cells Few <5 /hpf Urine Bacteria Few H None Seen /hpf Urine Glucose Normal Normal mg/dL Urine Test Negative Negative Test 09/08/24 05:41 09/08/24 10:10 09/08/24 11:15 09/08/24 13:52 Range/Units White Blood Count 8.3 7.5 4.4-10.8 10^3/uL Red Blood Count 4.92 4.37 4.0-5.20 10^6/uL Hemoglobin 6.8 *L 6.3 *L 6.5 *L 12.2-16.2 g/dL Hematocrit 25.5 L 23.3 L 23.3 L 36.0-46.0 % Mean Corpuscular Volume 51.8 L 53.3 L 80.0-100.0 fL Mean Corpuscular Hemoglobin 13.7 L 14.9 L 28.0-32.0 pg Mean Corpuscular Hemoglobin Concent 26.5 L 27.9 L 32.0-36.0 g/dL Red Cell Distribution Width 22.1 H 21.9 H 11.8-14.3 % Platelet Count 358 336 334 140-450 10^3/uL Mean Platelet Volume 8.3 8.3 6.9-10.8 fL Neutrophils (%) (Auto) 71.9 60.5 37.0-80.0 % Lymphocytes (%) (Auto) 15.4 25.2 10.0-50.0 % Monocytes (%) (Auto) 11.5 11.8 0.0-12.0 % Eosinophils (%) (Auto) 0.5 1.7 0.0-7.0 % Basophils (%) (Auto) 0.7 0.8 0.0-2.0 % Neutrophils # (Auto) 5.9 4.6 1.6-8.6 10 ^3/uL Lymphocytes # (Auto) 1.3 1.9 0.4-5.4 10 ^3/uL Monocytes # (Auto) 1.0 0.9 0-1.3 10 ^3/uL Eosinophils # (Auto) 0 0.1 0-0.8 10 ^3/uL Basophils # (Auto) 0.1 0.1 0-0.2 10 ^3/uL Nucleated Red Blood Cells 0.1 0.0 % Platelet Estimate Adequate Adequate Hypochromasia (manual) Marked Marked Anisocytosis (manual) Slight Slight Microcytosis Marked Marked Ovalocytes Few Few Stomatocytes Few Few Reticulocyte Count (auto) 3.02 H 0.5-1.5 % Prothrombin Time 10.3 9.3-11.8 sec Prothrombin Time INR 0.97 0.9-1.15 Activated Partial Thromboplast Time 23.9 L 24.5-34.5 SEC Fibrinogen 551 H 177-375 mg/dL Sodium Level 136 136-145 mmol/L Potassium Level 3.8 3.5-5.1 mmol/L Chloride Level 103 98-107 mmol/L Carbon Dioxide Level 24 20-31 mmol/L Anion Gap 9 5-15 Blood Urea Nitrogen 7 L 9-23 mg/dL Creatinine 0.76 0.550-1.02 mg/dL Glomerular Filtration Rate Calc 102 >90 mL/min BUN/Creatinine Ratio 9.2 L 10.0-20.0 Serum Glucose 91 74-106 mg/dL Hemoglobin A1c 4.2 <5.7 % A1C Calcium Level 9.5 8.7-10.4 mg/dL Iron Level 20 L 50-170 ug/dL Total Iron Binding Capacity 359 250-425 ug/dL Percent Iron Saturation 5.6 L 15-50 % Total Bilirubin 0.7 0.2-1.0 mg/dL Aspartate Amino Transferase (AST) 13 13-40 U/L Alanine Aminotransferase (ALT) 10 7-40 U/L Alkaline Phosphatase 88 46-116 U/L Lactate Dehydrogenase 218 120-246 U/L Total Protein 7.4 5.7-8.2 g/dL Albumin 4.1 3.2-4.8 g/dL Vitamin B12 Level 457 211-911 pg/mL Vitamin D 25-Hydroxy 15.6 L 30.0-100 ng/mL Thyroid Stimulating Hormone (TSH) 1.13 0.55-4.78 uIU/mL Haptoglobin Pending Hemoglobin A Pending Hemoglobin A2 Pending Hemoglobin F () Pending Hemoglobin S Pending Hemoglobin Electrophoresis Interp Pending Clumped Platelets Few Ferritin 7.1 L 10-291 ng/mL Rapid Plasma Reagin Pending RPR Titer Additional Testing 1:1 H NonRea<1:1 titer Treponema pallidum Ab (TP-PA) Pending Chlamydia trachomatis (CRYSTAL) Pending Hepatitis C Antibody Pending HIV (1&2) Antibody Negative Negative Neisseria gonorrhoeae (CRYSTAL) Pending Test 09/09/24 07:42 09/09/24 14:30 09/09/24 19:46 Range/Units White Blood Count 6.9 12.9 #H 14.0 H 4.4-10.8 10^3/uL Red Blood Count 5.04 4.70 4.52 4.0-5.20 10^6/uL Hemoglobin 9.3 #L 8.6 L 8.3 L 12.2-16.2 g/dL Hematocrit 30.4 #L 28.2 L 27.3 L 36.0-46.0 % Mean Corpuscular Volume 60.3 #L 60.0 L 60.4 L 80.0-100.0 fL Mean Corpuscular Hemoglobin 18.5 L 18.3 L 18.5 L 28.0-32.0 pg Mean Corpuscular Hemoglobin Concent 30.7 L 30.4 L 30.6 L 32.0-36.0 g/dL Red Cell Distribution Width 34.0 H 33.0 H 33.2 H 11.8-14.3 % Platelet Count 326 315 323 140-450 10^3/uL Mean Platelet Volume 8.2 8.2 8.2 6.9-10.8 fL Neutrophils (%) (Auto) 71.8 37.0-80.0 % Lymphocytes (%) (Auto) 12.8 10.0-50.0 % Monocytes (%) (Auto) 12.3 H 0.0-12.0 % Eosinophils (%) (Auto) 2.3 0.0-7.0 % Basophils (%) (Auto) 0.8 0.0-2.0 % Neutrophils # (Auto) 5.0 1.6-8.6 10 ^3/uL Lymphocytes # (Auto) 0.9 0.4-5.4 10 ^3/uL Monocytes # (Auto) 0.9 0-1.3 10 ^3/uL Eosinophils # (Auto) 0.2 0-0.8 10 ^3/uL Basophils # (Auto) 0.1 0-0.2 10 ^3/uL Nucleated Red Blood Cells 0.1 % Differential Total Cells Counted 100.0 100.0 100 Neutrophils % (Manual) 86 H 88 H 37.0-80.0 Band Neutrophils % (Manual) 5 4 Lymphocytes % (Manual) 4 L 5 L 10.0-50.0 Monocytes % (Manual) 5 3 0-12 Eosinophils % (Manual) 0 0 0-7 Basophils % (Manual) 0 0 0.0-2.0 Metamyelocytes % (manual) 0 0 Myelocytes % (Manual) 0 0 Promyelocytes % (Manual) 0 0 Blast Cells % (Manual) 0 0 Reactive Lymphocytes 0 0 Platelet Estimate Adequate Adequate Hypochromasia (manual) Marked Marked Anisocytosis (manual) Marked Marked Microcytosis Marked Marked Assessment and Plan ASSESSMENT AND PLAN Assessment and Plan POD#1 s/p Subtotal Hysterectomy and BS, Cystoscopy doing well Advance orders pain control Regular diet today D/C starkey catheter My orders: Orders - SUE FLORES DO Procedure Being Performed: (09/09/24 04:00) Obtain Consent For: (09/09/24 04:00) Bedrest With Bathroom Privileg (09/08/24 12:21) Abdominal Clip Prep (09/08/24 12:21) Obtain Consent For Anesthesia (09/08/24 12:21) RPR (09/08/24 12:39) Treponema Pallidum Ab Lc (09/08/24 12:39) Hepatitis C Antibody (09/08/24 12:39) To Pacu For Recovery (09/09/24 13:01) Ondansetron Hcl (Zofran) (09/09/24 13:15) Cefazolin 1gm/50ml (Ancef) (09/09/24 14:00) Hydromorphone Injection (Dilaudid Inject (09/09/24 13:15) Complete Blood Count (09/10/24 03:00) Oxygen By Nasal Cannula (09/09/24 13:01) D/C Starkey (09/09/24 13:01) Abdominal Binder (09/09/24 13:01) Incentive Spirometry (09/09/24 13:01) Ketorolac Injection (Toradol Injection) (09/09/24 13:15) Comprehensive Metabolic Panel (09/10/24 04:00) Hydrocodone-Acet 7.5/325mg Tab ([place] 7. (09/09/24 13:15) Ct Ab Pel With Iv Con Only (09/09/24 13:29) Full Liq Diet (09/09/24 Dinner) Plan discussed with: Patient Date of Service: Sep 10, 2024 Billing Provider: SUE FLORES DO Common Visit Codes: [id number] INP/OBS CARE(MOD) SUE FLORES DO Sep 10, 2024 04:09
[2024-09-10] MEDS: metroNIDAZOLE 500MG/100ML 100 ML IV SCH (05:39)
[2024-09-10 06:40] LABS: Alanine Aminotransferase 11 U/L (7-40); Albumin 3.6 g/dL (3.2-4.8); Alkaline Phosphatase 93 U/L (46-116); Anion Gap 8 (5-15); Aspartate Aminotransferase 22 U/L (13-40); Blood Urea Nitrogen 7 mg/dL (9-23); Calcium 8.7 mg/dL (8.7-10.4); Carbon Dioxide 23 mmol/L (20-31); Chloride 104 mmol/L (98-107); Glucose 102 mg/dL (74-106); Potassium 4.1 mmol/L (3.5-5.1); Sodium 135 mmol/L (136-145)
[2024-09-10 06:41] LABS: Bilirubin, Total 0.6 mg/dL (0.2-1.0); Total Protein 6.2 g/dL (5.7-8.2)
[2024-09-10 08:14] LABS: Basophils # (auto) 0 10 ^3/uL (0-0.2); Basophils % (auto) 0.3 % (0.0-2.0); Eosinophils # (auto) 0 10 ^3/uL (0-0.8); Neutrophils # (auto) 10.3 10 ^3/uL (1.6-8.6); Red Cell Distribution Width 34.1 % (11.8-14.3)
[2024-09-10 08:15] LABS: Hematocrit 27.9 % (36.0-46.0); Lymphocytes # (auto) 0.6 10 ^3/uL (0.4-5.4); Lymphocytes % (auto) 5.1 % (10.0-50.0); Mean Corpuscular Hemoglobin 17.6 pg (28.0-32.0); Mean Corpuscular Hgb Conc. 28.6 g/dL (32.0-36.0); Mean Corpuscular Volume 61.5 fL (80.0-100.0); Monocytes # (auto) 1.1 10 ^3/uL (0-1.3); Monocytes % (auto) 9.4 % (0.0-12.0); Neutrophils % (auto) 85.2 % (37.0-80.0); Platelet Count (auto) 361 10^3/uL (140-450); Red Blood Cells 4.53 10^6/uL (4.0-5.20); White Blood Cell 12.2 10^3/uL (4.4-10.8)
--- NOTE | 2024-09-10 08:50 | DVHPNRES ---
Progress Note Date Seen: Sep 10, 2024 Resident Creating Document: NESSA FORD RESIDENT Medical Necessity Reason Pt with a Central, PICC or Fol: No Subjective Review of Systems Patient is a 38-year-old female with past medical history of uterine fibroids who came in due to asymptomatic anemia. According to the patient, on 09/07/2024 she started experiencing a back ache radiating from her neck to her sacrum along with a fever whereby she knew she likely will need a blood transfusion which is what prompted this visit to the hospital. Patient notes that she had similar symptoms 2 months ago when she went to the hospital and got to PRBC transfusion. Patient notes that she has received over 10 blood transfusions throughout her life. Last menstrual period was on 08/06/2024, patient notes her periods last for 7 days and occur every 28-30 days. Patient says she is unable to count how many pads she goes through, roughly 1 pad per hour. Past surgical history: section Home medications: Denies Past Hospitalization: At [facility] 2 years ago for similar symptoms Social & Personal history: Patient lives with her boyfriend. Uses tobacco sometimes. Drinks alcohol occasionally, can not remember last drink. Uses marijuana occasionally. Denies using other drugs. Allergies: Denies Patient seen and examined at bedside. Patient is alert and oriented to time, place person and responding to all questions. Patient is post-op day 1, s/p exlap hystrectomy. no BM or flatus yet. DC-ed starkey in the AM and was able to pass urine subsequently, advanced diet. With abdominal pain as 5/10 Objective vital signs Vital Sign Date Time Temp Pulse Resp B/P (MAP) Pulse Ox O2 Delivery O2 Flow Rate FiO2 09/10/24 06:04 70 18 126/70 09/10/24 05:00 97.7 96 97.7 09/09/24 20:00 Room Air* 0 21 Total Intake and Output 09/09/24 09/09/24 09/10/24 15:00 23:00 07:00 Intake Total 100 ml 0 ml 425 ml Output Total 950 ml Balance 100 ml 0 ml -525 ml medications Current Medications Medications Dose Ordered Sig/Dandre Route Start Time Stop Time Status Last Admin Dose Admin Sodium Chloride 10 ml Q8HR IV 09/07/24 22:00 09/10/24 05:41 10 ML Acetaminophen 325 mg Q4HP PRN PO 09/07/24 21:45 Nitroglycerin 0.4 mg Q5MINP PRN SL 09/07/24 21:45 Morphine Sulfate 2 mg Q30M PRN IV 09/07/24 21:45 Ceftriaxone Sodium 50 ml @ 100 mls/hr DAILY@09 IV 09/08/24 09:00 09/08/24 08:26 100 MLS/HR Ergocalciferol 50,000 unit Q7D PO 09/08/24 08:45 09/08/24 10:54 50,000 UNIT Ondansetron HCl 4 mg Q4HP PRN IV 09/09/24 13:15 Hydromorphone HCl 1 mg Q2HP PRN IV 09/09/24 13:15 09/10/24 05:34 1 MG Ketorolac Tromethamine 30 mg Q6HP PRN IV 09/09/24 13:15 09/14/24 13:14 Acetaminophen/ Hydrocodone Bitart 1 tab Q6HP PRN PO 09/09/24 13:15 09/10/24 06:47 1 TAB Metronidazole 100 ml @ 100 mls/hr Q8HR IV 09/10/24 06:00 09/10/24 05:39 100 MLS/HR Examination General Appearance: Cooperative. Well developed. Well nourished. NAD Head Exam: Normal inspection. Pale conjunctiva Neck Exam: Normal inspection. Non-tender. Normal alignment Pulmonary/Respiratory: Chest non-tender. Clear bilateral breath sounds, no crackles, no wheezing. Cardiovascular/Chest: Regular rate and rhythm. No murmurs. No JVD. Peripheral Pulses: 2+ Radial (R). 2+ Radial (L). 2+ Pedal (R). 2+ Pedal (L) Abdominal Exam: Normal bowel sounds. Soft. normal abdomen, no visible veins, a bdominal binder in place, mild tenderness around the incision site. No hepatospenomegaly. No masses Ankle Exam: Negative ankle edema Lower extremities: Negative lower extremity edema Neuro/Mental Status: A&O x4. Coherent. Thoughts/Psych: Normal thought pattern. Appropriate mood and affect. Good judgement and insight Skin Exam: Normal inspection. Normal color. Warm. Dry laboratory and microbiology Laboratory Tests 09/10/24 05:11 Test 09/10/24 05:11 Range/Units Serum Glucose 102 74-106 mg/dL Microbiology Date/Time Source Procedure Growth Status 09/07/24 17:31 Voided Urine Urine Culture - Preliminary Resulted Problem List/Assessment/Plan Problem List/Assessment/Plan Uterine leiomyoma Acute on chronic symptomatic blood loss anemia due to above Iron deficiency - s/p 2 PRBCs transfusion overnight - pelvic USG: Large uterine lesion most likely representing fibroid. Limited field of view limits further delineation. MRI may be obtained to further characterize. - HB this a.m. 6.8 --> ordered another PRBC transfusion - project portfolio analyst consulted - IV NS 1 L, IV tranexamic acid 1000 mg - ordered hemoglobin electrophoresis, RBC morphology, echocardiogram - patient completed ex lap with total versus subtotal abdominal hysterectomy, possible bilateral salpingo-oophorectomy and possible cystoscopy. - CT abdomen pelvis from 09/09/2024:Status post hysterectomy. Small amount of fluid in the pelvis could be postprocedural. Pneumoperitoneum in the abdomen and pelvis is likely postprocedural. Mild left hydronephrosis and hydroureter. No evidence of a ureteral leak. Bibasilar atelectasis and consolidation. Trace left pleural effusion. Splenomegaly. - started IV metronidazole Q 8 hours - microcytic anemia with MCV less than 60, we will need outpatient hemoglobinopathy workup - renal USG: Mild left-sided hydronephrosis. Nonvisualized urinary bladder. - acetaminophen 325 mg for mild pain, Ransom 7.5 for moderate pain, hydromorphone 1 mg for severe pain and ketorolac 30 mg for breakthrough pain Acute complicated UTI - IV ceftriaxone - IV ondansetron 4 mg Vitamin-D deficiency - repleted DVT prophylaxis: SCD Goals of care: Full code, discussed for >16 minutes on 09/08/24 Plan discussed with patient Plan discussed with Dr. Traylor Plan discussed with: Patient, Other (RN) My Orders My Orders Orders - NESSA FORD RESIDENT Procedure Category Date Status Time Furosemide Injection PHA 09/09/24 In Process (Lasix Injection) 12:10 Date of Service: Sep 10, 2024 Billing Provider: DUNCAN TRAYLOR MD Common Visit Codes: [id number] INP/OBS CARE(HIGH) Coding Comment Comment I saw and evaluated the patient. I reviewed the residents note and agree with findings and plan as documented in the residents note. FORDNESSA Sep 10, 2024 08:50 DUNCAN TRAYLOR MD Sep 10, 2024 22:42
--- NOTE | 2024-09-10 12:33 | DVH ---
INDICATION: Left-sided hydro. TECHNIQUE: Multiple real-time sonographic images of the kidneys and bladder were obtained. COMPARISON: CT abdomen pelvis 09/09/2024 FINDINGS: RIGHT kidney measures 9.1 cm in length. Normal cortical thickness and echogenicity. No stones or foc al lesions are identified. No hydronephrosis. LEFT kidney measures 12.3 cm in length. Normal cortical thickness and echogenicity. No stones or fo nemesio lesions are identified. There is mild asymmetric fullness of the left renal collecting system. The urinary bladder is not visualized due to overlying bandaging. IMPRESSION: 1. Mild left-sided hydro nephrosis. 2. Nonvisualized urinary bladder. HS:Y
--- NOTE | 2024-09-10 14:11 | MEDREC ---
[facility] Intervention Section I [facility] Intervention: Review courses of therapy (URINE CULTURE ARE POSSIBLE CONTAMINATION. WBC ELEVATED BUT TRENDING DOWN TODAY. IT COULD BE DUE TO THE HYSTERECTOMY ON 09/09 WHICH SHE RECEIVED ANCEF FOR POST-OP . PLEASE REVIEW IF ANTIBIOTICS ARE STILL NEEDED) MADDISON DE LA CRUZ Sep 10, 2024 14:10
[2024-09-10] MEDS: KETOROLAC TROMETH 30 MG/ML 1ML VIAL IV PRN (21:59)
[2024-09-11] VITALS (8 sets, daily range): BP systolic 124–159; BP diastolic 78–84; PULSE 92–108; RESP 16–18; TEMP 97.6–98.3; O2SAT 92–98
[2024-09-11 07:10] LABS: Basophils # (auto) 0.1 10 ^3/uL (0-0.2); Eosinophils # (auto) 0.1 10 ^3/uL (0-0.8); Eosinophils % (auto) 1.3 % (0.0-7.0); Lymphocytes # (auto) 1.3 10 ^3/uL (0.4-5.4); Mean Corpuscular Hgb Conc. 29.4 g/dL (32.0-36.0); Monocytes # (auto) 0.9 10 ^3/uL (0-1.3); Neutrophils # (auto) 6.8 10 ^3/uL (1.6-8.6)
[2024-09-11 07:12] LABS: Basophils % (auto) 1.2 % (0.0-2.0); Hemoglobin 7.6 g/dL (12.2-16.2); Lymphocytes % (auto) 14.3 % (10.0-50.0); Mean Corpuscular Hemoglobin 17.8 pg (28.0-32.0); Mean Corpuscular Volume 60.5 fL (80.0-100.0); Neutrophils % (auto) 73.2 % (37.0-80.0); Platelet Count (auto) 319 10^3/uL (140-450); Red Cell Distribution Width 34.9 % (11.8-14.3); White Blood Cell 9.2 10^3/uL (4.4-10.8)
[2024-09-11 07:33] LABS: Anion Gap 5 (5-15); Carbon Dioxide 28 mmol/L (20-31); Chloride 105 mmol/L (98-107); Sodium 138 mmol/L (136-145)
[2024-09-11 07:34] LABS: Calcium 9.1 mg/dL (8.7-10.4)
[2024-09-11 07:39] LABS: BUN/Creatinine Ratio 15.3 (10.0-20.0); Blood Urea Nitrogen 11 mg/dL (9-23); Glucose 91 mg/dL (74-106)
--- NOTE | 2024-09-11 08:59 | DVHPNRES ---
Progress Note Date Seen: Sep 11, 2024 Resident Creating Document: JOHANNE LEWIS RESIDENT Medical Necessity Reason Pt with a Central, PICC or Fol: No Subjective Review of Systems Post surgically patient is doing well, hemodynamically stable, steadily improving. Patient reports: No new complaints, Feels better Changes from previous H/P or p: No Changes Review of Systems: HEENT:Normal, CVS:Normal, RESPIRATORY:Normal, GI:Abnormal (Abdominal pain), :Normal, MSK:Normal, NEURO:Normal Objective vital signs Vital Sign Date Time Temp Pulse Resp B/P (MAP) Pulse Ox O2 Delivery O2 Flow Rate FiO2 09/11/24 08:51 97.7 101 18 128/78 (95) 95 97.7 09/10/24 20:00 Room Air* 0 21 Total Intake and Output 09/10/24 09/10/24 09/11/24 15:00 23:00 07:00 Intake Total 390 ml 340 ml 700 ml Balance 390 ml 340 ml 700 ml medications Current Medications Medications Dose Ordered Sig/Dandre Route Start Time Stop Time Status Last Admin Dose Admin Sodium Chloride 10 ml Q8HR IV 09/07/24 22:00 09/11/24 05:51 10 ML Acetaminophen 325 mg Q4HP PRN PO 09/07/24 21:45 Nitroglycerin 0.4 mg Q5MINP PRN SL 09/07/24 21:45 Morphine Sulfate 2 mg Q30M PRN IV 09/07/24 21:45 Ceftriaxone Sodium 50 ml @ 100 mls/hr DAILY@09 IV 09/08/24 09:00 09/10/24 10:05 100 MLS/HR Ergocalciferol 50,000 unit Q7D PO 09/08/24 08:45 09/08/24 10:54 50,000 UNIT Ondansetron HCl 4 mg Q4HP PRN IV 09/09/24 13:15 Hydromorphone HCl 1 mg Q2HP PRN IV 09/09/24 13:15 09/11/24 04:07 1 MG Ketorolac Tromethamine 30 mg Q6HP PRN IV 09/09/24 13:15 09/14/24 13:14 09/10/24 21:59 30 MG Acetaminophen/ Hydrocodone Bitart 1 tab Q6HP PRN PO 09/09/24 13:15 09/11/24 00:35 1 TAB Metronidazole 100 ml @ 100 mls/hr Q8HR IV 09/10/24 06:00 09/11/24 05:51 100 MLS/HR Ferric Sodium Gluconate Complex 110 ml @ 110 mls/hr DAILY@1200 IV 09/11/24 12:00 09/15/24 12:59 UNV Examination: GENERAL:Normal, HEENT:Normal, NECK:Normal, LUNGS:Abnormal (Fine basal rales), CVS:Normal, ABDOMEN:Abnormal (Stable post surgical abdomen, mild tenderness), MSK:Normal, SKIN:Normal, NEURO:Normal, :Normal laboratory and microbiology Laboratory Tests 09/11/24 05:45 Test 09/11/24 05:45 Range/Units Serum Glucose 91 74-106 mg/dL Microbiology Date/Time Source Procedure Growth Status 09/07/24 17:31 Voided Urine Urine Culture - Final Complete Labs and/or images reviewed: Labs reviewed by me, Image(s) reviewed by me Problem List/Assessment/Plan Problem List/Assessment/Plan Hospital Course: Ms Good, a 38-year-old female , history of C- section x3 and BTL. Last menstrual period 08/06/2024, known uterine fibroids, presenting with asymptomatic anemia, back pain radiating from her neck to her sacrum, and fever. She has a history of similar symptoms and has received over 10 blood transfusions in her life, including a recent transfusion two months ago. Her last menstrual period was on 08/06/2024, lasting 7 days and occurring every 28-30 days, with heavy bleeding. She has a past surgical history of a section and was hospitalized at [facility] two years ago for similar symptoms. She lives with her boyfriend, occasionally uses tobacco, alcohol, and marijuana, and has no known allergies. Currently, she is post-op day 1 after an exploratory laparotomy and hysterectomy, experiencing abdominal pain rated 5/10, with no bowel movement or flatus yet, but able to pass urine after starkey catheter removal. # Uterine fibroids/ leiomyoma: symptomatic, Post surgical removal, pending biopsy. Needs outpatient follow up with OBGYN. # dysfunctional uterine bleeding: Recent history of recurrent bleeding due to fibroids Needing surgical management. bleach chlorinator on board appreciate input. # Status post exploratory laparotomy, hysterectomy salpingo-oophorectomy H-SBO: repeat surgery shows no complication. Postop day 2. Post surgical management: Gram-negative coverage with IV ceftriaxone and Flagyl for anaerobes for now. , pain persists, continue pain management, movements as tolerated. continue incentive spirometry. Plenty of water with a Senna docusate, high fiber diet. # menometrorrhagia: History of irregular heavy bleeding / spotting due to fibroids for past 1 year. # acute on chronic symptomatic blood loss anemia: dysfunctional genitourinary bleed, controlled Status post 2 PRBC, TXA iv dose, H&H and platelets stable # microcytic hypochromic anemia: Surprisingly low MCV in 50s, improving to 60s, iron-deficiency likely complicated with blood loss, primary hemoglobinopathy to be ruled out yet. # Iron-deficiency anemia: likely due to chronic bleeding, IV iron as constipation/ delayed bowel movement, additional thalassemia workup needed outpatient saenz. # pulmonary hypertension: needs further outpatient workup, ALFREDO, sleep study, moderately elevated RVSP 47. # Mid left side hydronephrosis: Likely clinically silent. Normal Creatinine & GFR , status post Starkey catheter removal, look for daily BMP trending. # questionable primary syphilis: Reported monogamous, no known sexual exposure. RPR wounds to 1, specific test pending. # Vitamin-D deficiency: Continue supplements. # Acute complicated UTI: IV ceftriaxone , culture grew mixed joselyn. # DVT prophylaxis: SCD, move as possible # Diet: regular diet, high-fiber Barriers to discharge: Post surgical treatment to continue, hemodynamically stable. Tomorrow we will consider discharge planning. Case discussed with Dr. Alicea. Code status: Full code. Complex patient care discussion needed total 39 minutes. Plan discussed with: Patient, Other (Primary team,) My Orders My Orders Orders - JOHANNE LEWIS RESIDENT Procedure Category Date Status Time Sodium Ferr Gluc PHA 09/11/24 Logged 62.5mg/5ml (Ferrlecit) 12:00 Date of Service: Sep 12, 2024 Billing Provider: DUNCAN ALICEA MD Common Visit Codes: [id number] INP/OBS CARE(HIGH) Coding Comment Comment I saw and evaluated the patient. I reviewed the residents note and agree with findings and plan as documented in the residents note. JOHANNE LEWIS RESIDENT Sep 11, 2024 08:59 DUNCAN ALICEA MD Sep 12, 2024 12:54
--- NOTE | 2024-09-11 10:46 | DVHPN2 ---
Chief Complaints Patient reports: No new complaints Nursing reports: No new complaints Objective Vitals Vital Signs Date Time Temp Pulse Resp B/P (MAP) Pulse Ox O2 Delivery O2 Flow Rate FiO2 09/11/24 09:26 101 18 128/78 09/11/24 08:51 97.7 95 97.7 09/10/24 20:00 Room Air* 0 21 Medications Current Medications Medications (Trade) Dose Ordered Sig/Dandre Route PRN Reason Start Time Stop Time Status Last Admin Iron Sucrose 110 ml @ 110 mls/hr DAILY@1200 IV 09/11/24 12:00 09/15/24 12:59 General: Normal Abdominal: Soft Extremities: Normal Studies Laboratory Tests 09/11/24 05:45 Test 09/11/24 05:45 Range/Units Serum Glucose 91 74-106 mg/dL Ass/Plan Assessment S/P HYST Plan SUPPORTIVE CARE PT ENCOURAGED TO AMBULATE ADIN GONZALEZ DO Sep 11, 2024 10:46
[2024-09-11] MEDS: IRON SUCROSE COMPLEX 110 ML IV SCH (12:42)
[2024-09-11] MEDS: DOCUSATE CALCIUM 240 MG CAP PO ONE (17:43)
[2024-09-11] MEDS: SENNA 8.6 MG TAB PO ONE (17:43)
[2024-09-12 00:35] VITALS: BP 140/91; PULSE 16; TEMP 97.5; O2SAT 98
[2024-09-12 04:59] VITALS: BP 154/85; PULSE 86; RESP 16; TEMP 98.4; O2SAT 100
[2024-09-12 05:48] LABS: Basophils # (auto) 0.1 10 ^3/uL (0-0.2); Hematocrit 27.8 % (36.0-46.0)
[2024-09-12 05:52] LABS: Basophils % (auto) 1.2 % (0.0-2.0); Eosinophils # (auto) 0.1 10 ^3/uL (0-0.8); Eosinophils % (auto) 1.6 % (0.0-7.0); Hemoglobin 8.3 g/dL (12.2-16.2); Lymphocytes # (auto) 1.4 10 ^3/uL (0.4-5.4); Lymphocytes % (auto) 16.1 % (10.0-50.0); Mean Corpuscular Hemoglobin 18.2 pg (28.0-32.0); Mean Corpuscular Hgb Conc. 29.8 g/dL (32.0-36.0); Monocytes # (auto) 0.6 10 ^3/uL (0-1.3); Monocytes % (auto) 6.8 % (0.0-12.0); Neutrophils # (auto) 6.3 10 ^3/uL (1.6-8.6); Neutrophils % (auto) 74.3 % (37.0-80.0); Nucleated Red Blood Cells % 0.1 %; Platelet Count (auto) 365 10^3/uL (140-450); Red Blood Cells 4.56 10^6/uL (4.0-5.20); White Blood Cell 8.5 10^3/uL (4.4-10.8)
[2024-09-12 07:26] LABS: Platelet Estimate Adequate
[2024-09-12 07:27] LABS: Anisocytosis Marked; Hypochromia Marked
[2024-09-12 07:29] LABS: Ovalocytes FEW
[2024-09-12 08:00] VITALS: PULSE 77; RESP 18; O2SAT 95
[2024-09-12 08:30] VITALS: BP 143/64; PULSE 77; RESP 18; TEMP 97.6; O2SAT 95
[2024-09-12] MEDS ORDERED: METR-344 PO (12:20)
[2024-09-12] MEDS ORDERED: CEFP200T15 PO (12:20)
--- NOTE | 2024-09-12 12:45 | DVHDSRES ---
Discharge Summary Date of Admission Resident Creating Document: JOHANNE LEWIS RESIDENT Sep 07, 2024 at 21:37 Date of Discharge: Sep 12, 2024 Labs/Diagnostic Data: Laboratory Results Test 09/12/24 04:33 09/11/24 05:45 09/10/24 05:11 09/09/24 19:46 White Blood Count 8.5 10^3/uL (4.4-10.8) Red Blood Count 4.56 10^6/uL (4.0-5.20) Hemoglobin 8.3 g/dL (12.2-16.2) Hematocrit 27.8 % (36.0-46.0) Mean Corpuscular Volume 61.0 fL (80.0-100.0) Mean Corpuscular Hemoglobin 18.2 pg (28.0-32.0) Mean Corpuscular Hemoglobin Concent 29.8 g/dL (32.0-36.0) Red Cell Distribution Width 34.0 % (11.8-14.3) Platelet Count 365 10^3/uL (140-450) Mean Platelet Volume 8.4 fL (6.9-10.8) Neutrophils (%) (Auto) 74.3 % (37.0-80.0) Lymphocytes (%) (Auto) 16.1 % (10.0-50.0) Monocytes (%) (Auto) 6.8 % (0.0-12.0) Eosinophils (%) (Auto) 1.6 % (0.0-7.0) Basophils (%) (Auto) 1.2 % (0.0-2.0) Neutrophils # (Auto) 6.3 10 ^3/uL (1.6-8.6) Lymphocytes # (Auto) 1.4 10 ^3/uL (0.4-5.4) Monocytes # (Auto) 0.6 10 ^3/uL (0-1.3) Eosinophils # (Auto) 0.1 10 ^3/uL (0-0.8) Basophils # (Auto) 0.1 10 ^3/uL (0-0.2) Nucleated Red Blood Cells 0.1 % Platelet Estimate Adequate Hypochromasia (manual) Marked Anisocytosis (manual) Marked Microcytosis Marked Ovalocytes Few Sodium Level 138 mmol/L (136-145) Potassium Level 4.0 mmol/L (3.5-5.1) Chloride Level 105 mmol/L (98-107) Carbon Dioxide Level 28 mmol/L (20-31) Anion Gap 5 (5-15) Blood Urea Nitrogen 11 mg/dL (9-23) Creatinine 0.72 mg/dL (0.550-1.02) Glomerular Filtration Rate Calc 108 mL/min (>90) BUN/Creatinine Ratio 15.3 (10.0-20.0) Serum Glucose 91 mg/dL (74-106) Calcium Level 9.1 mg/dL (8.7-10.4) Total Bilirubin 0.6 mg/dL (0.2-1.0) Aspartate Amino Transferase (AST) 22 U/L (13-40) Alanine Aminotransferase (ALT) 11 U/L (7-40) Alkaline Phosphatase 93 U/L (46-116) Total Protein 6.2 g/dL (5.7-8.2) Albumin 3.6 g/dL (3.2-4.8) Differential Total Cells Counted 100.0 (100) Neutrophils % (Manual) 88 (37.0-80.0) Band Neutrophils % (Manual) 4 Lymphocytes % (Manual) 5 (10.0-50.0) Monocytes % (Manual) 3 (0-12) Eosinophils % (Manual) 0 (0-7) Basophils % (Manual) 0 (0.0-2.0) Metamyelocytes % (manual) 0 Myelocytes % (Manual) 0 Promyelocytes % (Manual) 0 Blast Cells % (Manual) 0 Reactive Lymphocytes 0 Test 09/08/24 13:52 09/08/24 11:15 09/08/24 10:10 09/08/24 05:41 Clumped Platelets Few Stomatocytes Few Ferritin 7.1 ng/mL (10-291) RPR Titer Additional Testing 1:1 titer (NonRea<1:1) Hepatitis C Antibody Negative (Negative) HIV (1&2) Antibody Negative (Negative) Haptoglobin 209 mg/dL (33-278) Reticulocyte Count (auto) 3.02 % (0.5-1.5) Prothrombin Time 10.3 sec (9.3-11.8) Prothrombin Time INR 0.97 (0.9-1.15) Activated Partial Thromboplast Time 23.9 SEC (24.5-34.5) Fibrinogen 551 mg/dL (177-375) Hemoglobin A1c 4.2 % A1C (<5.7) Iron Level 20 ug/dL (50-170) Total Iron Binding Capacity 359 ug/dL (250-425) Percent Iron Saturation 5.6 % (15-50) Lactate Dehydrogenase 218 U/L (120-246) Vitamin B12 Level 457 pg/mL (211-911) Vitamin D 25-Hydroxy 15.6 ng/mL (30.0-100) Thyroid Stimulating Hormone (TSH) 1.13 uIU/mL (0.55-4.78) Test 09/07/24 17:31 09/07/24 11:16 09/07/24 10:05 Urine Color Light-yellow (Yellow) Urine Clarity Clear (Clear) Urine pH 8.0 (5.0-9.0) Urine Specific [place] 1.013 (1.001-1.035) Urine Protein Trace (Negative) Urine Ketones Negative (Negative) Urine Blood Negative /uL (Negative) Urine Nitrite Negative (Negative) Urine Bilirubin Negative (Negative) Urine Urobilinogen Normal mg/dL (Negative) Urine Leukocyte Esterase 1+ /uL (Negative) Urine RBC 1 /hpf (0 - 4) Urine WBC 35 /hpf (0 - 5) Urine Squamous Epithelial Cells Few /hpf (<5) Urine Bacteria Few /hpf (None Seen) Urine Glucose Normal mg/dL (Normal) Urine Test Negative (Negative) Lactic Acid Level 1.1 mmol/L (0.4-2.0) Magnesium Level 1.7 mg/dL (1.6-2.6) Troponin I High Sensitivity < 3 ng/L (</=34) B-Type Natriuretic Peptide 62.82 pg/mL (0-100) POC Glucose 90 mg/dl (70-106) Other Laboratory Tests 09/12/24 04:33 09/11/24 05:45 Brief Hx & Hospital Course: Patient is a 38-year-old female with past medical history of uterine fibroids who came in due to asymptomatic anemia. According to the patient, on 09/07/2024 she started experiencing a back ache radiating from her neck to her sacrum along with a fever whereby she knew she likely will need a blood transfusion which is what prompted this visit to the hospital. Patient notes that she had similar symptoms 2 months ago when she went to the hospital and got to PRBC transfusion. Patient notes that she has received over 10 blood transfusions throughout her life. Last menstrual period was on 08/06/2024, patient notes her periods last for 7 days and occur every 28-30 days. Patient says she is unable to count how many pads she goes through, roughly 1 pad per hour. Hospital course: Patient was given 2 PRBC transfusions overnight. Pelvic ultrasound showed large uterine lesion most likely representing fibroid. Limited field of view limits further delineation. locomotive firer/fireman was taken on board. Patient was given IV NS 1 L, IV tranexamic acid 1000 mg. Patient completed Exploratory laparotomy via midline infraumbilical incision, subtotal hysterectomy, bilateral salpingectomy, diagnostic cystoscopy and lysis of adhesions 09/09/[address] abdomen pelvis on 09/09/2024 after the procedure showed s/p hysterectomy, small amount of fluid in the pelvis could be postprocedural. Pneumoperitoneum in the abdomen and pelvis is likely postprocedural. Mild left hydronephrosis and hydroureter. No evidence of a ureteral leak. Bibasilar atelectasis and consolidation. Trace left pleural effusion. Splenomegaly. Incentive spirometry was ordered for the patient and she was started on IV metronidazole Q 8 hours. Renal ultrasound on 09/10/2024 showed mild left-sided hydronephrosis. Nonvisualized urinary bladder. Urinary catheter was removed the same day and patient was able to void without any complications. Postoperative pain was managed with acetaminophen for mild pain, [place] for moderate pain and hydromorphone for severe pain while ketorolac 30 mg was used for breakthrough pain. Her acute complicated UTI was treated with IV ceftriaxone and vitamin-D levels were repleted. On the day of discharge, patient appeared well and had stable vital signs, patient was ambulatory and reported being able to pass flatus. Patient was prescribed cefpodoxime 200 mg b.i.d. and metronidazole 500 mg t.i.d. for 5 days. Her hospital course was uncomplicated. Patient was instructed to follow up with locomotive firer/fireman in the outpatient clinic in 1-2 weeks as well as follow up with her PCP at her earliest convenience. General Appearance: Cooperative. Well developed. Well nourished. NAD Head Exam: Normal inspection. Pale conjunctiva Neck Exam: Normal inspection. Non-tender. Normal alignment Pulmonary/Respiratory: Chest non-tender. Clear bilateral breath sounds, no crackles, no wheezing. Cardiovascular/Chest: Regular rate and rhythm. No murmurs. No JVD. Peripheral Pulses: 2+ Radial (R). 2+ Radial (L). 2+ Pedal (R). 2+ Pedal (L) Abdominal Exam: Normal bowel sounds. Soft. normal abdomen, no visible veins, a bdominal binder in place, mild tenderness around the incision site. No hepatospenomegaly. No masses Ankle Exam: Negative ankle edema Lower extremities: Negative lower extremity edema Neuro/Mental Status: A&O x4. Coherent. Thoughts/Psych: Normal thought pattern. Appropriate mood and affect. Good judgement and insight Skin Exam: Normal inspection. Normal color. Warm. Dry Operations or Procedures DATE OF SURGERY: 09/09/2024 POSTOPERATIVE DIAGNOSES: * Symptomatic fibroid uterus. * Menorrhagia with anemia. * Morbid obesity. * Previous section x 3. FINAL DIAGNOSES: * Symptomatic fibroid uterus. * Menorrhagia with anemia. * Morbid obesity. * Previous section x 3. * Multiple adhesions. PROCEDURES PERFORMED: Exploratory laparotomy via midline infraumbilical incision, subtotal hysterectomy, bilateral salpingectomy, diagnostic cystoscopy and lysis of adhesions. SURGEON: Tripp Rooney DO. PUBLICITY EXPERT: Ministerio Hernandes NP. TYPE OF ANESTHESIA: General endotracheal. ANESTHESIOLOGIST: Dr. Thomas Betancourt. DESCRIPTION OF FINDINGS: A bulky, enlarged uterus, approximately 20 weeks' size. Normal bilateral fallopian tubes and ovaries. The ovaries were conserved bilaterally. Fallopian tubes were removed. The cervix was not removed. No gross evidence of malignancy. The left ureter consistent with mild hydroureter, multiple adhesions of the uterus to the anterior abdominal wall. TECHNICAL PROCEDURE: After informed consent was obtained, the patient was taken to the operating room where she underwent smooth induction with general anesthesia. She was placed in a supine position. She was sterilely prepped and draped in usual fashion. A transurethral Giron was already in place. A midline incision was made with a scalpel and the incision carried sharply to the underlying fascia. The fascial incision was extended superiorly and inferiorly. Next, entry into the peritoneal cavity was performed sharply. The peritoneal incision was extended superiorly and inferiorly with good visualization of underlying organs. There were numerous adhesions encountered as described above. Sharp and blunt adhesiolysis was performed to gain access to the peritoneal cavity and uterus. The uterus was delivered through the incision. Uteroovarian fallopian tube complex was desiccated and transected with the LigaSure device on the patient's left side. The procedure was repeated on the contralateral right side in similar fashion with good hemostasis noted. Next,bilaterally, the round ligaments were identified and divided with the LigaSure device with good hemostasis noted. The anterior and posterior reflections of the broad ligament were dissected anteriorly to the level of the bladder and posteriorly to the level of the uterosacral ligaments. The bladder was densely adherent to the anterior uterine surface from the patient's previous sections. Sharp and blunt dissection was used to dissect the bladder in a caudad direction. The vesicouterine peritoneum was dissected with minimal bleeding. Bleeding points were controlled with cautery. The uterine vessels were skeletonized bilaterally. They were doubly clamped, transected and suture ligated with 0 Vicryl with good tissue hemostasis obtained. Next, the uterus was amputated at the isthmus and the specimen handed off to circulating team. Next, the cervical angles were clamped and suture ligated with 0 Vicryl with good hemostasis obtained. The endocervical canal was cauterized. Next, the cervical stump was sutured using multiple interrupted, 0 Vicryl sutures in [id number] fashion with good tissue approximation. The abdomen and pelvis were thoroughly irrigated. Hemostasis was confirmed. Next, the left and right ureters were identified and traced from its origin at the pelvic brim to the level of the bladder. There was identifiable left hydroureter. There was no compromise of the ureter that was apparent on the patient's left side. The fallopian tubes were removed using the LigaSure device across the mesosalpinx and the specimens submitted. The ovaries were intact and conserved, they were not removed. At this point, all instrumentation was removed from the patient's abdomen. I then proceeded to close the rectus fascia using double-looped PDS in continuous running fashion with good tissue approximation. We used a modified Smead-Smalls closure incorporating peritoneum and muscle into the closure of the abdominal wall. The subcutaneous tissue was irrigated, undermined and bleeding points controlled with cautery. The subcutaneous tissue was closed with a 2-0 plain gut and the skin was closed vertically with pam. A sterile dressing was then placed over the incision. Next, I then proceeded to remove the Giron catheter. I inserted a 70-degree cystoscope through the urethra into the bladder. Survey of the bladder dome trigone and ureteral orifices were all within normal limits. There was sluggish, but apparent dye seen coming out of bilateral ureteral orifices. The cystoscope was removed and the Giron catheter was replaced. A speculum was used to examine the patient's vagina. The small cervical stump could barely be identified and palpated. There was no active bleeding from the vagina. All instrumentation was then removed. The patient was taken out of frogleg position. She was awakened and taken to recovery room in a stable condition. INTRAOPERATIVE COMPLICATIONS: None. ESTIMATED BLOOD LOSS: 600 mL. POSTOPERATIVE CONDITION: Stable. SPECIMENS: Uterus, bilateral fallopian tubes. MEDICATIONS: The patient received 2 grams of Ancef prior to skin incision. Tripp Rooney, DO CG/ARV CT CT AB PEL WITH IV CON ONLY History: L HYDROURETER S/P HYSTERECTOMY; PERF Comparison Study: None available at time of dictation. Technique: Multidetector spiral CT of the abdomen and pelvis was performed from lung bases to pubic symphysis. Initial imaging was done without IV contrast, followed by post contrast images of the abdomen and pelvis. Intravenous contrast was administered during this examination. Multi phase imaging was obtained. Axial, coronal and sagittal multiplanar reformats were performed by the technologist on a separate workstation. CONTRAST: Type of contrast: Omni 300 Contrast injected: 100 ml Contrast ingested: 0 ml Radiation Dose : CT Dose: CTDI volume is 27.13 mGy. Dose-length product is 3779.55 mGy*cm Findings: Lung Bases: Mild atelectasis and consolidation in the visualized lung bases. Trace left pleural effusion. Liver: The liver is normal in size. No focal lesions. Normal hepatic vascular enhancement. Gallbladder and biliary Tree: Unremarkable Spleen: Spleen is enlarged. Pancreas: The pancreas is normal in appearance without focal lesions or abnormal enhancement. Adrenal Glands: Unremarkable Kidneys: There is irregularity and scarring of the right kidney. There are a few punctate calcifications in the upper pole of the right kidney. There is mild irregularity of the left kidney with renal cortical scarring. Mild left hydronephrosis and hydroureter. Contrast flows all the way to the bladder. No evidence of a ureteral leak. Bladder: Bladder is decompressed with a Giron catheter and cannot be adequately assessed. Bowel: The stomach is grossly normal in appearance. Small bowel and colon are normal in caliber and distribution. The appendix is not visualized; however, no secondary findings of acute appendicitis identified. Ascites: Small amount of free fluid in the pelvis. Pneumoperitoneum in the abdomen and pelvis likely postprocedural. Lymphadenopathy: No mesenteric, retroperitoneal or periportal lymphadenopathy. Abdominal wall and Mesentery: Postsurgical changes in the anterior abdominal wall. Vasculature: The visualized abdominal aorta is normal in size and caliber. Abdominal and pelvic vessels demonstrate normal enhancement. Pelvic Organs: The uterus is surgically absent. Musculoskeletal: No aggressive focal bony lesions, acute fractures or dislocation. IMPRESSION: 1. Status post hysterectomy. Small amount of fluid in the pelvis could be postprocedural. Pneumoperitoneum in the abdomen and pelvis is likely postprocedural. 2. Mild left hydronephrosis and hydroureter. No evidence of a ureteral leak. 3. Bibasilar atelectasis and consolidation. Trace left pleural effusion. Splenomegaly. Condition at Discharge: Good Final Diagnosis/Problems List Uterine leiomyoma Acute on chronic symptomatic blood loss anemia due to above Iron deficiency s/p ex lap with total versus subtotal abdominal hysterectomy Acute complicated UTI Vitamin-D deficiency Discharge Disposition: Home Discharge Instruct/Medications Diet: Regular Activity: No Restrictions, As Tolerated Follow Up/Referral: please follow up with ENVELOPE [facility]KER in 1-2 weeks please follow up with pcp in 1-2 weeks Medications: cefpodoxime 200mg twice a day for 5 days metronidazole 500mg three times a day for 5 days Discharge Statement: "Patient was advised to return to the ER or call 911 if any headaches, dizziness, shortness of breath, chest pain, abdominal pain, bleeding, fevers, or worsening of medical condition. Patient was counseled about treatment plan, medications, possible side effects, patientverbalized understanding. All questions were answered to the best of my ability. This discharge took greater then 30 minutes in planning, reviewing documentation, counseling the patient, and discussing with other team members." ASSESSMENT ASSESSMENT Assessment Uterine leiomyoma Acute on chronic symptomatic blood loss anemia due to above Iron deficiency s/p ex lap with total versus subtotal abdominal hysterectomy Acute complicated UTI Vitamin-D deficiency Date of Service: Sep 12, 2024 Billing Provider: DUNCAN TRAYLOR MD Common Visit Codes: 33717-RVY/OBS DISCH DAY >30min Coding Comment Comment I saw and evaluated the patient. I reviewed the residents note and agree with findings and plan as documented in the residents note. Hemoglobinopathy to be workup as outpatient, to rule out thalassemia NESSA FORD Sep 12, 2024 12:45 DUNCAN TRAYLOR MD Sep 12, 2024 12:55
[2024-09-12 16:21] VITALS: BP 138/86; PULSE 86; RESP 20; TEMP 98.4; O2SAT 98
[2024-09-12] MEDS ORDERED: HYDR1TAB97 PO (16:27)
[2024-09-12] MEDS ORDERED: IBUP-1455 PO (16:27)
--- NOTE | 2024-09-12 16:35 | DVHPN2 ---
Subjective Progress Notes Subjective POD#3 s/p Ex Lap, Supracervical Hysterectomy, BS, Cystoscopy for large pelvic mass (Uterine Leiomyoma, awaiting final pathology) S: Pain controlled. Denies fever/chills. No N/V. Tolerating regular diet. + Flatus. NO BM Voiding well, clear urine. No vaginal discharge. No dysuria Objective PHYSICAL EXAM Physical Exam: Alert, NAD, non toxic Abd: Soft, NT, Incision C/D/I midline scar, pam in place, no erythema Ext: Soft, NT. Neg Karina Sign Neuro: grossly WNL Vital Signs and I&O Vital Signs Date Time Temp Pulse Resp B/P (MAP) Pulse Ox O2 Delivery O2 Flow Rate FiO2 09/12/24 16:21 98.4 86 20 98 09/12/24 11:58 120/52 09/12/24 08:00 Room Air* 0 21 Intake and Output 09/12/24 07:00 Intake Total 1950 ml Balance 1950 ml Intake Oral 1490 ml IV Total 460 ml # Voids 8 Lab results Laboratory Tests Test 09/07/24 10:05 09/07/24 11:16 09/07/24 12:58 09/07/24 17:31 Range/Units POC Glucose 90 70-106 mg/dl White Blood Count 10.9 H 4.4-10.8 10^3/uL Red Blood Count 4.95 4.0-5.20 10^6/uL Hemoglobin 7.1 L 6.6 *L 12.2-16.2 g/dL Hematocrit 25.5 L 23.9 L 36.0-46.0 % Mean Corpuscular Volume 51.4 L 80.0-100.0 fL Mean Corpuscular Hemoglobin 14.3 L 28.0-32.0 pg Mean Corpuscular Hemoglobin Concent 27.9 L 32.0-36.0 g/dL Red Cell Distribution Width 21.9 H 11.8-14.3 % Platelet Count 369 140-450 10^3/uL Mean Platelet Volume 8.2 6.9-10.8 fL Neutrophils (%) (Auto) 80.8 H 37.0-80.0 % Lymphocytes (%) (Auto) 8.3 L 10.0-50.0 % Monocytes (%) (Auto) 10.3 0.0-12.0 % Eosinophils (%) (Auto) 0.2 0.0-7.0 % Basophils (%) (Auto) 0.4 0.0-2.0 % Neutrophils # (Auto) 8.8 H 1.6-8.6 10 ^3/uL Lymphocytes # (Auto) 0.9 0.4-5.4 10 ^3/uL Monocytes # (Auto) 1.1 0-1.3 10 ^3/uL Eosinophils # (Auto) 0 0-0.8 10 ^3/uL Basophils # (Auto) 0 0-0.2 10 ^3/uL Nucleated Red Blood Cells 0.1 % Platelet Estimate Adequate Hypochromasia (manual) Marked Microcytosis Marked Stomatocytes Few Sodium Level 133 L 136-145 mmol/L Potassium Level 3.8 3.5-5.1 mmol/L Chloride Level 101 98-107 mmol/L Carbon Dioxide Level 26 20-31 mmol/L Anion Gap 6 5-15 Blood Urea Nitrogen 9 9-23 mg/dL Creatinine 0.82 0.550-1.02 mg/dL Glomerular Filtration Rate Calc 93 >90 mL/min BUN/Creatinine Ratio 11.0 10.0-20.0 Serum Glucose 100 74-106 mg/dL Lactic Acid Level 1.1 0.4-2.0 mmol/L Calcium Level 9.5 8.7-10.4 mg/dL Magnesium Level 1.7 1.6-2.6 mg/dL Troponin I High Sensitivity < 3 L </=34 ng/L B-Type Natriuretic Peptide 62.82 0-100 pg/mL Urine Color Light-yellow Yellow Urine Clarity Clear Clear Urine pH 8.0 5.0-9.0 Urine Specific Ama 1.013 1.001-1.035 Urine Protein Trace H Negative Urine Ketones Negative Negative Urine Blood Negative Negative /uL Urine Nitrite Negative Negative Urine Bilirubin Negative Negative Urine Urobilinogen Normal Negative mg/dL Urine Leukocyte Esterase 1+ Negative /uL Urine RBC 1 0 - 4 /hpf Urine WBC 35 0 - 5 /hpf Urine Squamous Epithelial Cells Few <5 /hpf Urine Bacteria Few H None Seen /hpf Urine Glucose Normal Normal mg/dL Urine Test Negative Negative Test 09/08/24 05:41 09/08/24 10:10 09/08/24 11:15 09/08/24 13:52 Range/Units White Blood Count 8.3 7.5 4.4-10.8 10^3/uL Red Blood Count 4.92 4.37 4.0-5.20 10^6/uL Hemoglobin 6.8 *L 6.3 *L 6.5 *L 12.2-16.2 g/dL Hematocrit 25.5 L 23.3 L 23.3 L 36.0-46.0 % Mean Corpuscular Volume 51.8 L 53.3 L 80.0-100.0 fL Mean Corpuscular Hemoglobin 13.7 L 14.9 L 28.0-32.0 pg Mean Corpuscular Hemoglobin Concent 26.5 L 27.9 L 32.0-36.0 g/dL Red Cell Distribution Width 22.1 H 21.9 H 11.8-14.3 % Platelet Count 358 336 334 140-450 10^3/uL Mean Platelet Volume 8.3 8.3 6.9-10.8 fL Neutrophils (%) (Auto) 71.9 60.5 37.0-80.0 % Lymphocytes (%) (Auto) 15.4 25.2 10.0-50.0 % Monocytes (%) (Auto) 11.5 11.8 0.0-12.0 % Eosinophils (%) (Auto) 0.5 1.7 0.0-7.0 % Basophils (%) (Auto) 0.7 0.8 0.0-2.0 % Neutrophils # (Auto) 5.9 4.6 1.6-8.6 10 ^3/uL Lymphocytes # (Auto) 1.3 1.9 0.4-5.4 10 ^3/uL Monocytes # (Auto) 1.0 0.9 0-1.3 10 ^3/uL Eosinophils # (Auto) 0 0.1 0-0.8 10 ^3/uL Basophils # (Auto) 0.1 0.1 0-0.2 10 ^3/uL Nucleated Red Blood Cells 0.1 0.0 % Platelet Estimate Adequate Adequate Hypochromasia (manual) Marked Marked Anisocytosis (manual) Slight Slight Microcytosis Marked Marked Ovalocytes Few Few Stomatocytes Few Few Reticulocyte Count (auto) 3.02 H 0.5-1.5 % Prothrombin Time 10.3 9.3-11.8 sec Prothrombin Time INR 0.97 0.9-1.15 Activated Partial Thromboplast Time 23.9 L 24.5-34.5 SEC Fibrinogen 551 H 177-375 mg/dL Sodium Level 136 136-145 mmol/L Potassium Level 3.8 3.5-5.1 mmol/L Chloride Level 103 98-107 mmol/L Carbon Dioxide Level 24 20-31 mmol/L Anion Gap 9 5-15 Blood Urea Nitrogen 7 L 9-23 mg/dL Creatinine 0.76 0.550-1.02 mg/dL Glomerular Filtration Rate Calc 102 >90 mL/min BUN/Creatinine Ratio 9.2 L 10.0-20.0 Serum Glucose 91 74-106 mg/dL Hemoglobin A1c 4.2 <5.7 % A1C Calcium Level 9.5 8.7-10.4 mg/dL Iron Level 20 L 50-170 ug/dL Total Iron Binding Capacity 359 250-425 ug/dL Percent Iron Saturation 5.6 L 15-50 % Total Bilirubin 0.7 0.2-1.0 mg/dL Aspartate Amino Transferase (AST) 13 13-40 U/L Alanine Aminotransferase (ALT) 10 7-40 U/L Alkaline Phosphatase 88 46-116 U/L Lactate Dehydrogenase 218 120-246 U/L Total Protein 7.4 5.7-8.2 g/dL Albumin 4.1 3.2-4.8 g/dL Vitamin B12 Level 457 211-911 pg/mL Vitamin D 25-Hydroxy 15.6 L 30.0-100 ng/mL Thyroid Stimulating Hormone (TSH) 1.13 0.55-4.78 uIU/mL Haptoglobin 209 33-278 mg/dL Hemoglobin A Pending Hemoglobin A2 Pending Hemoglobin F () Pending Hemoglobin S Pending Hemoglobin Electrophoresis Interp Pending Clumped Platelets Few Ferritin 7.1 L 10-291 ng/mL Rapid Plasma Reagin Pending RPR Titer Additional Testing 1:1 H NonRea<1:1 titer Treponema pallidum Ab (TP-PA) Pending Chlamydia trachomatis (CRYSTAL) Pending Hepatitis C Antibody Negative Negative HIV (1&2) Antibody Negative Negative Neisseria gonorrhoeae (CRYSTAL) Pending Test 09/09/24 07:42 09/09/24 14:30 09/09/24 19:46 09/10/24 05:11 Range/Units White Blood Count 6.9 12.9 #H 14.0 H 12.2 H 4.4-10.8 10^3/uL Red Blood Count 5.04 4.70 4.52 4.53 4.0-5.20 10^6/uL Hemoglobin 9.3 #L 8.6 L 8.3 L 8.0 L 12.2-16.2 g/dL Hematocrit 30.4 #L 28.2 L 27.3 L 27.9 L 36.0-46.0 % Mean Corpuscular Volume 60.3 #L 60.0 L 60.4 L 61.5 L 80.0-100.0 fL Mean Corpuscular Hemoglobin 18.5 L 18.3 L 18.5 L 17.6 L 28.0-32.0 pg Mean Corpuscular Hemoglobin Concent 30.7 L 30.4 L 30.6 L 28.6 L 32.0-36.0 g/dL Red Cell Distribution Width 34.0 H 33.0 H 33.2 H 34.1 H 11.8-14.3 % Platelet Count 326 315 323 361 140-450 10^3/uL Mean Platelet Volume 8.2 8.2 8.2 8.4 6.9-10.8 fL Neutrophils (%) (Auto) 71.8 85.2 H 37.0-80.0 % Lymphocytes (%) (Auto) 12.8 5.1 L 10.0-50.0 % Monocytes (%) (Auto) 12.3 H 9.4 0.0-12.0 % Eosinophils (%) (Auto) 2.3 0.0 0.0-7.0 % Basophils (%) (Auto) 0.8 0.3 0.0-2.0 % Neutrophils # (Auto) 5.0 10.3 H 1.6-8.6 10 ^3/uL Lymphocytes # (Auto) 0.9 0.6 0.4-5.4 10 ^3/uL Monocytes # (Auto) 0.9 1.1 0-1.3 10 ^3/uL Eosinophils # (Auto) 0.2 0 0-0.8 10 ^3/uL Basophils # (Auto) 0.1 0 0-0.2 10 ^3/uL Nucleated Red Blood Cells 0.1 0.0 % Differential Total Cells Counted 100.0 100.0 100 Neutrophils % (Manual) 86 H 88 H 37.0-80.0 Band Neutrophils % (Manual) 5 4 Lymphocytes % (Manual) 4 L 5 L 10.0-50.0 Monocytes % (Manual) 5 3 0-12 Eosinophils % (Manual) 0 0 0-7 Basophils % (Manual) 0 0 0.0-2.0 Metamyelocytes % (manual) 0 0 Myelocytes % (Manual) 0 0 Promyelocytes % (Manual) 0 0 Blast Cells % (Manual) 0 0 Reactive Lymphocytes 0 0 Platelet Estimate Adequate Adequate Hypochromasia (manual) Marked Marked Anisocytosis (manual) Marked Marked Microcytosis Marked Marked Sodium Level 135 L 136-145 mmol/L Potassium Level 4.1 3.5-5.1 mmol/L Chloride Level 104 98-107 mmol/L Carbon Dioxide Level 23 20-31 mmol/L Anion Gap 8 5-15 Blood Urea Nitrogen 7 L 9-23 mg/dL Creatinine 0.70 0.550-1.02 mg/dL Glomerular Filtration Rate Calc 112 >90 mL/min BUN/Creatinine Ratio 10.0 10.0-20.0 Serum Glucose 102 74-106 mg/dL Calcium Level 8.7 8.7-10.4 mg/dL Total Bilirubin 0.6 0.2-1.0 mg/dL Aspartate Amino Transferase (AST) 22 13-40 U/L Alanine Aminotransferase (ALT) 11 7-40 U/L Alkaline Phosphatase 93 46-116 U/L Total Protein 6.2 5.7-8.2 g/dL Albumin 3.6 3.2-4.8 g/dL Test 09/11/24 05:45 09/12/24 04:33 Range/Units White Blood Count 9.2 8.5 4.4-10.8 10^3/uL Red Blood Count 4.30 4.56 4.0-5.20 10^6/uL Hemoglobin 7.6 L 8.3 L 12.2-16.2 g/dL Hematocrit 26.0 L 27.8 L 36.0-46.0 % Mean Corpuscular Volume 60.5 L 61.0 L 80.0-100.0 fL Mean Corpuscular Hemoglobin 17.8 L 18.2 L 28.0-32.0 pg Mean Corpuscular Hemoglobin Concent 29.4 L 29.8 L 32.0-36.0 g/dL Red Cell Distribution Width 34.9 H 34.0 H 11.8-14.3 % Platelet Count 319 365 140-450 10^3/uL Mean Platelet Volume 8.3 8.4 6.9-10.8 fL Neutrophils (%) (Auto) 73.2 74.3 37.0-80.0 % Lymphocytes (%) (Auto) 14.3 16.1 10.0-50.0 % Monocytes (%) (Auto) 10.0 6.8 0.0-12.0 % Eosinophils (%) (Auto) 1.3 1.6 0.0-7.0 % Basophils (%) (Auto) 1.2 1.2 0.0-2.0 % Neutrophils # (Auto) 6.8 6.3 1.6-8.6 10 ^3/uL Lymphocytes # (Auto) 1.3 1.4 0.4-5.4 10 ^3/uL Monocytes # (Auto) 0.9 0.6 0-1.3 10 ^3/uL Eosinophils # (Auto) 0.1 0.1 0-0.8 10 ^3/uL Basophils # (Auto) 0.1 0.1 0-0.2 10 ^3/uL Nucleated Red Blood Cells 0.0 0.1 % Sodium Level 138 136-145 mmol/L Potassium Level 4.0 3.5-5.1 mmol/L Chloride Level 105 98-107 mmol/L Carbon Dioxide Level 28 20-31 mmol/L Anion Gap 5 5-15 Blood Urea Nitrogen 11 9-23 mg/dL Creatinine 0.72 0.550-1.02 mg/dL Glomerular Filtration Rate Calc 108 >90 mL/min BUN/Creatinine Ratio 15.3 10.0-20.0 Serum Glucose 91 74-106 mg/dL Calcium Level 9.1 8.7-10.4 mg/dL Platelet Estimate Adequate Hypochromasia (manual) Marked Anisocytosis (manual) Marked Microcytosis Marked Ovalocytes Few Assessment and Plan ASSESSMENT AND PLAN Assessment and Plan POD#3 s/p Hysterectomy Anemia s/p blood transfusion (Stable) UTI, treated Plan: D/C to home today F/U in [facility] clinic in 1 week for staple removal Rx: Ibuprofen 800mg TID PRN and Wil[place] 5/325mg #20 (5 day supply for acute post surgical severe pain as needed) My orders: Orders - GARIBALDI,SUE G DO Procedure Being Performed: (09/09/24 04:00) Obtain Consent For: (09/09/24 04:00) Bedrest With Bathroom Privileg (09/08/24 12:21) Abdominal Clip Prep (09/08/24 12:21) Obtain Consent For Anesthesia (09/08/24 12:21) RPR (09/08/24 12:39) Treponema Pallidum Ab Lc (09/08/24 12:39) To Pacu For Recovery (09/09/24 13:01) Ondansetron Hcl (Zofran) (09/09/24 13:15) Hydromorphone Injection (Dilaudid Inject (09/09/24 13:15) Oxygen By Nasal Cannula (09/09/24 13:01) D/C Giron (09/09/24 13:01) Abdominal Binder (09/09/24 13:01) Incentive Spirometry (09/09/24 13:01) Ketorolac Injection (Toradol Injection) (09/09/24 13:15) Hydrocodone-Acet 7.5/325mg Tab (Willet 7. (09/09/24 13:15) Ct Ab Pel With Iv Con Only (09/09/24 13:29) Regular Diet (09/10/24 Breakfast) Heplock Iv (09/10/24 ) Ambulate X 4 Daily On Pod #1 (09/10/24 04:46) Out Of Bed Ambulate (09/10/24 04:46) Plan discussed with: Patient Date of Service: Sep 12, 2024 Billing Provider: SUE FLORES DO Common Visit Codes: [id number] INP/OBS CARE(LOW) SUE FLORES DO Sep 12, 2024 16:35
[2024-09-12 16:58] VITALS: BP 132/80; PULSE 99; RESP 18; TEMP 98.1; O2SAT 100
[2024-09-13 10:36] LABS: Treponema Pallidum Ab LC Reactive (Non Reactive)
[2024-09-13 11:06] LABS: Hgb A 98.6 % (96.4-98.8); Hgb A2 1.4 % (1.8-3.2)
== END 2024-09-12 17:30 | disposition home or self-care (01) | DRG 519 ==
LOC: ER 09:52 → OVERFLOW 21:37 → WEST WING 23:48
PROVIDERS: ADMIT Student in an Organized Health Care Education/Training Program; ATTEND Student in an Organized Health Care Education/Training Program
PROC: 30233N1 Transfusion of Nonautologous Red Blood Cells into Peripheral Vein, Percutaneous Approach (ICD-10-PCS; principal; 2024-09-08)
PROC: 0UB70ZZ Excision of Bilateral Fallopian Tubes, Open Approach (ICD-10-PCS; 2024-09-09)
PROC: 0TJB8ZZ Inspection of Bladder, Via Natural or Artificial Opening Endoscopic (ICD-10-PCS; 2024-09-09)
PROC: 0UT90ZZ Resection of Uterus, Open Approach (ICD-10-PCS; 2024-09-09)
DX: D25.9 Leiomyoma of uterus, unspecified (principal); I27.20 Pulmonary hypertension, unspecified; D62 Acute posthemorrhagic anemia; N13.6 Pyonephrosis; E11.9 Type 2 diabetes mellitus without complications; E55.9 Vitamin D deficiency, unspecified; E66.01 Morbid (severe) obesity due to excess calories; I10 Essential (primary) hypertension; N92.0 Excessive and frequent menstruation with regular cycle; Z98.891 History of uterine scar from previous surgery; Z90.711 Acquired absence of uterus with remaining cervical stump; Z87.891 Personal history of nicotine dependence; Z68.34 Body mass index [BMI] 34.0-34.9, adult
CPT/HCPCS: 36415; 71045; 74177; 76775; 76856; 80048; 80053; 81001; 81025; 82306; 82607; 82728; 82962; 83010; 83021; 83036; 83540; 83550; 83605; 83615; 83735; 83880; 84443; 84484; 85007; 85014; 85018; 85025; 85027; 85045; 85049; 85384; 85610; 85660; 85730; 86592; 86703; 86780; 86803; 86850; 86870; 86900; 86901; 86922; 87086; 93005; 93306; 96365; 97163; 99291; G0378; J0131; J0330; J1100; J1756; J1885; J2003; J2405; J3490

== ENCOUNTER 2024-10-08 17:25 | Emergency (ER) | payer MEDICAID ==
[~2024-10-08] VITALS: Ht 162.6 cm; Wt 84.4 kg
[~2024-10-08 17:25] MED LIST: CEFP200T15 PO; HYDR1TAB97 PO; IBUP-1455 PO; METR-344 PO
[2024-10-08 18:40] LABS: Basophils # (auto) 0.1 10 ^3/uL (0-0.2); Eosinophils # (auto) 0.2 10 ^3/uL (0-0.8); Eosinophils % (auto) 2.8 % (0.0-7.0); Hematocrit 34.7 % (36.0-46.0); Hemoglobin 10.7 g/dL (12.2-16.2); Lymphocytes # (auto) 1.5 10 ^3/uL (0.4-5.4); Lymphocytes % (auto) 25.3 % (10.0-50.0); Mean Corpuscular Hemoglobin 21.1 pg (28.0-32.0); Mean Corpuscular Hgb Conc. 30.7 g/dL (32.0-36.0); Mean Corpuscular Volume 68.6 fL (80.0-100.0); Monocytes # (auto) 0.5 10 ^3/uL (0-1.3); Monocytes % (auto) 8.2 % (0.0-12.0); Neutrophils # (auto) 3.7 10 ^3/uL (1.6-8.6); Neutrophils % (auto) 62.7 % (37.0-80.0); Nucleated Red Blood Cells % 0.2 %; Platelet Count (auto) 295 10^3/uL (140-450); Red Blood Cells 5.06 10^6/uL (4.0-5.20); White Blood Cell 5.9 10^3/uL (4.4-10.8)
[2024-10-08 18:42] LABS: Red Cell Distribution Width 34.3 % (11.8-14.3)
[2024-10-08 18:58] LABS: Alanine Aminotransferase 17 U/L (7-40); Albumin 4.5 g/dL (3.2-4.8); Alkaline Phosphatase 81 U/L (46-116); Anion Gap 8 (5-15); Aspartate Aminotransferase 14 U/L (13-40); Blood Urea Nitrogen 9 mg/dL (9-23); Calcium 9.8 mg/dL (8.7-10.4); Carbon Dioxide 27 mmol/L (20-31); Chloride 105 mmol/L (98-107); Glucose 97 mg/dL (74-106); Lipase 50 U/L (12-53); Potassium 3.5 mmol/L (3.5-5.1); Sodium 140 mmol/L (136-145)
[2024-10-08 18:59] LABS: Bilirubin, Total 0.4 mg/dL (0.2-1.0)
[2024-10-08 19:00] LABS: Urine Bacteria None Seen /hpf (None Seen)
--- NOTE | 2024-10-08 19:04 | DVH ---
Exam: CT CT AB PEL WO CON-NO ORAL OR IV History: L sided abd pain s/p hysterectomy 09/09/24 Comparison Study: CT CT AB PEL WITH IV CON ONLY on DOS: 09/09/24 TECHNIQUE: Multidetector CT of the abdomen and pelvis was performed from lung bases to pubic symphysi s. Imaging was performed without IV contrast. Axial, coronal, and sagittal multiplanar reformats were obtained from the axial data set by the technologist. RADIATION DOSE: DLP 751.24 mGy.cm; CTDI vol 14.52 mGy. Findings: Lungs: The lung bases are clear. Heart: The visualized heart is unremarkable. No cardiomegaly or pericardial effusion. Liver: Unremarkable. Gallbladder: Unremarkable. Spleen: Unremarkable Pancreas: Unremarkable Adrenals: Unremarkable Kidneys: Bilateral renal lobulation with right renal atrophy. GI tract: Unremarkable : Status post hysterectomy. Surgical clips in the left adnexal region. 3.7 cm fluid attenuating les ion in the left lower quadrant with mild adjacent inflammatory changes. Vasculature: Unremarkable Lymphadenopathy: Absent Peritoneum: No ascites. Musculoskeletal: Unremarkable Soft tissues: Midline laparotomy with mild inflammatory changes. Impression: 1. Status post hysterectomy with a 3.7 cm fluid collection in the left lower quadrant may reflect a p ostoperative seroma. Cannot exclude an abscess given noncontrast technique. 2. Midline laparotomy with mild inflammatory changes.
[2024-10-08 19:38] LABS: Urine Blood Negative /uL (Negative); Urine Clarity Clear (Clear); Urine Color Yellow (Yellow); Urine Mucus MODERATE (None Seen); Urine Protein, UAD 1+ (Negative); Urine Specific Gravity 1.036 (1.001-1.035); Urine Urobilinogen 2 mg/dL (Negative); Urine WBC 4 /hpf (0 - 5)
[2024-10-08 19:59] LABS: Anisocytosis Marked; Hypochromia Moderate; Platelet Estimate Adequate
--- NOTE | 2024-10-08 21:21 | ED.PDOC ---
GI ASSESSMENT HPI Comments 38-year-old female brought in by self complaining of left-sided abdominal pain. Patient states she was seen here on 09/08/24 was admitted for blood transfusion, then underwent hysterectomy the next day. Patient states she was supposed to have the pam removed from her surgical wound a week ago, however was unable to establish transportation. She also states she was seen at another facility, underwent abdominal CT and was told he had a possible hematoma and a UTI. She is currently taking antibiotics, however states she is still having abdominal pain. She denies fever, nausea, vomiting, diarrhea, constipation or dysuria. Chief Complaint: Abdominal Pain Time Seen by MD: 17:47 Allergies: Coded Allergies: NO KNOWN ALLERGIES (Unverified , 09/07/24) Home Meds Active Scripts Acetaminophen (Tylenol Extra Strength) 500 Mg Tab, 1000 MG PO Q6HP PRN, #30 TAB prn pain. Do not take if taking [place]. Prov:RASHAUN NELSON MD 10/08/24 Ibuprofen Micronized (Ibuprofen) 800 Mg Tab, 800 MG PO Q8HPRN PRN, #30 TAB Prov:RASHAUN NELSON MD 10/08/24 Hydrocodone-Acetaminophen (Hydrocodone/Acetaminophen 5-325 mg) 1 Tab Tab, 1 TAB PO Q6HPRN PRN for 5 Days, #20 TAB Prov:SUE FLORES DO 09/12/24 Metronidazole (Flagyl) 500 Mg Tab, 1 TAB PO TID for 5 Days, #15 TAB Prov:NESSA FORD RESIDENT 09/12/24 Cefpodoxime Proxetil (Cefpodoxime Proxetil) 200 Mg Tab, 1 TAB PO BID for 5 Days, #10 TAB Prov:NESSA FORD RESIDENT 09/12/24 Mode of Arrival: Ambulatory Past Medical History PAST MEDICAL HISTORY: Anemia, Denies Surgical History: , Hysterectomy Surgical History (Other): Away [employer] [facility] History: Uterine Fibroids Family History Family History: Reviewed,noncontributory to illness Social History Smoker: Non-Smoker Alcohol: Denies ETOH Use Drugs: Denies Drug Use Lives In: Home All Other Systems: Reviewed and Negative (Comprehensive systems review obtained and negative except for what is stated in the HPI) Physical Exam General Appearance: No Apparent Distress HEENT: Other (Moist mucous membranes, pupils symmetric, no facial asymmetry) Neck: Full Range of Motion, Normal Inspection Respiratory: Lungs Clear, No Accessory Muscle Use, No Respiratory Distress, Normal Breath Sounds Cardiovascular: No Edema, No JVD, Regular Rate/Rhythm Breast Exam: Deferred Gastrointestinal: Soft, Tenderness (Left upper quadrant, mid abdominal and left lower quadrant tenderness to palpation. No tenderness to percussion. No rebound or guarding.) Genitalia: Deferred Pelvic: Deferred Rectal: Deferred Extremities: Normal inspection, Normal range of motion, Non-tender, No pedal edema Neurologic: Alert (Oriented x4), Normal Affect, Normal Mood, Other (Ambulatory without difficulty. No gross focal deficit.) Cerebellar Function: NOT DONE Reflexes: NOT DONE Skin: Dry, Normal Color, Warm, Other (Midline surgical wound appears clean, dry and intact with pam in place. No erythema, edema or discharge.) Lymphatic: NOT DONE Was a procedure done? Was a procedure done?: No GI differential Dx Differential Diagnosis: Bowel Obstruction, Gastroenteritis, Urinary Obstruction, UTI, Food Poisoning, Bacterial, Viral, Hypovolemia, Impaction, Ischemic Bowel, Kidney Stone Other Differential Diagnosis Postoperative infection, abscess, among others X-Ray, Labs, Meds, VS Vital Signs Date Time Temp Pulse Resp B/P (MAP) Pulse Ox O2 Delivery O2 Flow Rate FiO2 10/08/24 18:19 98.1 86 14 139/85 (103) 100 Lab Test 10/08/24 18:16 10/08/24 18:12 Range/Units White Blood Count 5.9 4.4-10.8 10^3/uL Red Blood Count 5.06 4.0-5.20 10^6/uL Hemoglobin 10.7 L 12.2-16.2 g/dL Hematocrit 34.7 L 36.0-46.0 % Mean Corpuscular Volume 68.6 L 80.0-100.0 fL Mean Corpuscular Hemoglobin 21.1 L 28.0-32.0 pg Mean Corpuscular Hemoglobin Concent 30.7 L 32.0-36.0 g/dL Red Cell Distribution Width 34.3 H 11.8-14.3 % Platelet Count 295 140-450 10^3/uL Mean Platelet Volume 8.7 6.9-10.8 fL Neutrophils (%) (Auto) 62.7 37.0-80.0 % Lymphocytes (%) (Auto) 25.3 10.0-50.0 % Monocytes (%) (Auto) 8.2 0.0-12.0 % Eosinophils (%) (Auto) 2.8 0.0-7.0 % Basophils (%) (Auto) 1.0 0.0-2.0 % Neutrophils # (Auto) 3.7 1.6-8.6 10 ^3/uL Lymphocytes # (Auto) 1.5 0.4-5.4 10 ^3/uL Monocytes # (Auto) 0.5 0-1.3 10 ^3/uL Eosinophils # (Auto) 0.2 0-0.8 10 ^3/uL Basophils # (Auto) 0.1 0-0.2 10 ^3/uL Nucleated Red Blood Cells 0.2 % Platelet Estimate Adequate Hypochromasia (manual) Moderate Anisocytosis (manual) Marked Microcytosis Marked Sodium Level 140 136-145 mmol/L Potassium Level 3.5 3.5-5.1 mmol/L Chloride Level 105 98-107 mmol/L Carbon Dioxide Level 27 20-31 mmol/L Anion Gap 8 5-15 Blood Urea Nitrogen 9 9-23 mg/dL Creatinine 0.90 0.550-1.02 mg/dL Glomerular Filtration Rate Calc 83 >90 mL/min BUN/Creatinine Ratio 10.0 10.0-20.0 Serum Glucose 97 74-106 mg/dL Lactic Acid Level 0.8 0.4-2.0 mmol/L Calcium Level 9.8 8.7-10.4 mg/dL Total Bilirubin 0.4 0.2-1.0 mg/dL Aspartate Amino Transferase (AST) 14 13-40 U/L Alanine Aminotransferase (ALT) 17 7-40 U/L Alkaline Phosphatase 81 46-116 U/L Total Protein 8.0 5.7-8.2 g/dL Albumin 4.5 3.2-4.8 g/dL Lipase 50 12-53 U/L Urine Color Yellow Yellow Urine Clarity Clear Clear Urine pH 6.0 5.0-9.0 Urine Specific [place] 1.036 H 1.001-1.035 Urine Protein 1+ H Negative Urine Ketones Negative Negative Urine Blood Negative Negative /uL Urine Nitrite Negative Negative Urine Bilirubin Negative Negative Urine Urobilinogen 2 H Negative mg/dL Urine Leukocyte Esterase Negative Negative /uL Urine RBC 1 0 - 4 /hpf Urine WBC 4 0 - 5 /hpf Urine Squamous Epithelial Cells Few <5 /hpf Urine Bacteria None seen None Seen /hpf Urine Mucus Moderate None Seen Urine Glucose Normal Normal mg/dL PROCEDURE(s): ABPL - CT AB PEL WO CON-NO ORAL OR IV REASON: L sided abd pain s/p hysterectomy 09/09/24 ORDER NUMBER(s): [id number], ACCESSION NUMBER(s): [id number] Exam: CT CT AB PEL WO CON-NO ORAL OR IV History: L sided abd pain s/p hysterectomy 09/09/24 Comparison Study: CT CT AB PEL WITH IV CON ONLY on DOS: 09/09/24 TECHNIQUE: Multidetector CT of the abdomen and pelvis was performed from lung bases to pubic symphysis. Imaging was performed without IV contrast. Axial, coronal, and sagittal multiplanar reformats were obtained from the axial data set by the technologist. RADIATION DOSE: DLP 751.24 mGy.cm; CTDI vol 14.52 mGy. Findings: Lungs: The lung bases are clear. Heart: The visualized heart is unremarkable. No cardiomegaly or pericardial effusion. Liver: Unremarkable. Gallbladder: Unremarkable. Spleen: Unremarkable Pancreas: Unremarkable Adrenals: Unremarkable Kidneys: Bilateral renal lobulation with right renal atrophy. GI tract: Unremarkable : Status post hysterectomy. Surgical clips in the left adnexal region. 3.7 cm fluid attenuating lesion in the left lower quadrant with mild adjacent inflammatory changes. Vasculature: Unremarkable Lymphadenopathy: Absent Peritoneum: No ascites. Musculoskeletal: Unremarkable Soft tissues: Midline laparotomy with mild inflammatory changes. Impression: 1. Status post hysterectomy with a 3.7 cm fluid collection in the left lower quadrant may reflect a postoperative seroma. Cannot exclude an abscess given noncontrast technique. 2. Midline laparotomy with mild inflammatory changes. X-Ray, Labs, Meds, VS Comment 38-year-old female with history of hysterectomy on 09/09/2024 complaining of left-sided abdominal pain Vitals unremarkable Exam remarkable for left-sided abdominal tenderness to palpation, midline surgical wound appears clean, dry and intact with pam in place Rhythm strip independently interpreted by me: Sinus rhythm, rate 86, no ectopy. CT abdomen and pelvis: Impression: 1. Status post hysterectomy with a 3.7 cm fluid collection in the left lower quadrant may reflect a postoperative seroma. Cannot exclude an abscess given noncontrast technique. 2. Midline laparotomy with mild inflammatory changes. CBC remarkable for hemoglobin 10.7, hematocrit 34.7, CMP normal, lipase normal, UA unremarkable Patient treated with the following in the ED: Toradol [address] Flores was paged for stat consult and voicemail was left. I was able to discuss the case with Dr. Funez. She felt the CT findings are more consistent with postoperative seroma than abscess, given the patient's lack of fever or leukocytosis. Patient is currently well-appearing, and appears stable for outpatient follow-up. Dr. Funez requested the patient follow-up on Thursday10/10/24 at 10:00 a.m. outpatient OBGYN clinic for staple removal. Dr. Flores also returned my call and we discussed the case. He agreed with the plan and will see the patient in clinic on Thursday. Patient was advised regarding workup findings, my impression, treatment plan and follow-up recommendations. She expressed understanding and agreed. I will prescribe pain medication. Rx Tylenol, ibuprofen Time of 1ST Reevaluation: 21:00 Reevaluation 1ST: Unchanged Patient Education/Counseling: Diagnosis, Treatment, Need For Follow Up Family Education/Counseling: No Family Present Departure 1 Departure Time of Disposition: 21:30 Impression: Primary Impression: Postoperative seroma Qualified Codes: N99.842 - Postprocedural seroma of a genitourinary system organ or structure following a genitourinary system procedure Disposition: HOME / SELF CARE / HOMELESS Condition: Stable Additional Instructions: Your blood tests and urine test were unremarkable. Your CT scan showed a fluid collection on the left side of your abdomen, which is likely to resolve without treatment. I discussed these findings with Dr. Flores, your surgeon. He requested you follow-up with him in OBGYN clinic on Thursday10/10/2024 at 10:00 a.m. for re-evaluation and staple removal. I have prescribed pain medication. e-Prescriptions Acetaminophen (Tylenol Extra Strength) 500 Mg Tab 1000 MG PO Q6HP PRN, #30 TAB prn pain. Do not take if taking [place]. Prov: RASHAUN NELSON MD 10/08/24 Ibuprofen Micronized (Ibuprofen) 800 Mg Tab 800 MG PO Q8HPRN PRN, #30 TAB Prov: RASHAUN NELSON MD 10/08/24 Discharged With: Self Critical Care Note Critical Care Time?: No Stability Stability form required: No Heart Score Heart Score: Heart Score Response (Comments) Value History N/A 0 EKG N/A 0 Age N/A 0 Risk Factors N/A 0 Troponin N/A 0 Total 0 RASHAUN NELSON MD Oct 08, 2024 21:21
[2024-10-08] MEDS ORDERED: IBUP-1455 PO (21:46)
[2024-10-08] MEDS ORDERED: ACET-1304 PO (21:46)
[2024-10-08 23:40] VITALS: BP 157/85; PULSE 80; RESP 18; TEMP 98.3; O2SAT 100
[2024-10-08] MEDS: KETOROLAC TROMETH 60MG/2ML VIAL IM ONE (23:59)
== END 2024-10-09 00:04 | disposition home or self-care (01) ==
LOC: ER 17:25
DX: N99.842 Postprocedural seroma of a genitourinary system organ or structure following a genitourinary system procedure (principal); D64.9 Anemia, unspecified; Z90.710 Acquired absence of both cervix and uterus; Z98.890 Other specified postprocedural states; Z79.899 Other long term (current) drug therapy
CPT/HCPCS: 36415; 74176; 80053; 81001; 83605; 83690; 85025